=== PATIENT | female | born 1955 | race Caucasian/White ===

== ENCOUNTER 2019-09-22 08:27 | Outpatient (CLI) | payer BC, SELFPAY ==
--- NOTE | ~2019-09-22 | MM_ITS ---
EXAMINATION: MM screening [facility] BI w [facility] HISTORY: Screening mammogram TECHNIQUE: Craniocaudal and mediolateral oblique 3-D tomosynthesis images were obtained and synthetic 2-D images were generated. CAD analysis was submitted and interpreted. COMPARISON: 08/21/2018, 08/09/2017, 07/27/2016 BREAST PARENCHYMAL COMPOSITION: There are scattered areas of fibroglandular density. FINDINGS: Scattered benign-appearing calcifications are present. There is no evidence of suspicious m ass, calcification, or architectural distortion to suggest malignancy in either breast. There has bee n no suspicious interval change. IMPRESSION: 1. No mammographic evidence of malignancy. 2. Recommend routine screening mammography in one year. BI-RADS Category 2: Benign finding(s). Reviewed, dictated and finalized at location A. [employer]
== END 2019-09-22 08:28 | disposition home or self-care (01) ==
PROVIDERS: PCP Internal Medicine; Visit Provider Internal Medicine
DX: Z12.31 Encounter for screening mammogram for malignant neoplasm of breast (principal)
CPT/HCPCS: 77063; 77067

== ENCOUNTER 2020-01-19 09:32 | Outpatient (CLI) | payer BC, SELFPAY ==
--- NOTE | ~2020-01-19 | XR_ITS ---
EXAMINATION: XR foot LT min 3V DATE: 01/19/2020 09:55 INDICATION: Left mediastinal pain and swelling TECHNIQUE: Dorsoplantar, lateral, and 2 oblique views of the left foot were obtained. COMPARISON: 05/27/2015 FINDINGS: There is no fracture, dislocation, or subluxation. Mild osteoarthritis is noted in multiple interphalangeal joints and in the midfoot. Soft tissue calcifications are seen anterior to the dista l tibia. A plantar calcaneal enthesophyte is noted. IMPRESSION: 1. No acute osseous abnormality. Reviewed, dictated and finalized at location A.
== END 2020-01-19 09:33 | disposition home or self-care (01) ==
PROVIDERS: PCP Internal Medicine; Visit Provider Internal Medicine
DX: M79.89 Other specified soft tissue disorders (principal)
CPT/HCPCS: 73630

== ENCOUNTER 2020-03-08 07:52 | Outpatient (CLI) | payer BC, SELFPAY ==
--- NOTE | ~2020-03-08 | XR_ITS ---
XR foot LT min 3V DATE: 03/08/2020 08:15 INDICATION: Left foot generalized pain TECHNIQUE: 3 weightbearing views COMPARISON: 01/19/2020 left foot FINDINGS: Prominent plantar calcaneal enthesopathy. Pes planus. Osteoarthritic changes are noted at some of the tarsometatarsal, metatarsophalangeal and interphalang eal joints. There is mild flattening deformity of the second metatarsal head, likely due to old avascular necrosi s. IMPRESSION: Pes planus Plantar calcaneal enthesopathy Osteoarthritis Reviewed, dictated and finalized at location B.
== END 2020-03-08 07:53 | disposition home or self-care (01) ==
PROVIDERS: PCP Internal Medicine; Visit Provider Orthopaedic Surgery
DX: M79.672 Pain in left foot (principal)
CPT/HCPCS: 73630

== ENCOUNTER 2020-12-04 09:06 | Outpatient (CLI) | payer BC, SELFPAY | END 2020-12-04 09:07 | disposition home or self-care (01) | LOC: CHSCOVIDVC 09:07 | PROVIDERS: PCP Internal Medicine | DX: Z23 Encounter for immunization (principal) | CPT/HCPCS: 0011A; 91301 ==

== ENCOUNTER 2021-01-01 09:02 | Outpatient (CLI) | payer BC, SELFPAY | END 2021-01-01 09:03 | disposition home or self-care (01) | LOC: CHSCOVIDVC 09:02 | PROVIDERS: PCP Internal Medicine | DX: Z23 Encounter for immunization (principal) | CPT/HCPCS: 0012A; 91301 ==

== ENCOUNTER 2021-03-16 09:03 | Outpatient (CLI) | payer MEDICAID, SELFPAY ==
--- NOTE | ~2021-03-16 | CT_ITS ---
EXAMINATION: CT lung screening DATE: 03/16/2021 09:33 INDICATION: Personal history of nicotine dependence, current smoker with 46 pack year history TECHNIQUE: Computed tomography (CT) of the chest was performed without intravenous contrast. The dose -length product (DLP) was 66.94 mGy-cm. Automated exposure control and iterative reconstruction techn [employer] were employed. COMPARISON: 04/28/2019 FINDINGS: There is a stable 4 mm nodule in the superior segment of the left lower lobe. No new pulmon pretty nodule is identified. The lungs are free of acute opacities. There is no pleural effusion or pneu mothorax. No pathologically enlarged thoracic lymph nodes are identified. The heart size is normal. T here is mild emphysema. Calcified coronary artery atherosclerosis is noted. There is a 7 mm cyst of t he right hepatic lobe. Again noted is chronic anterior wedging of the T6, T7, and T8 vertebral bodies . IMPRESSION: 1. Lung-RADS category 2: Benign appearance or behavior. Continue annual screening with noncontrast lo w-dose chest CT in 12 months. Reviewed, dictated and finalized at location B. IMPRESSION: 1. Lung-RADS category 2: Benign appearance or behavior. Continue annual screeni ng with noncontrast low-dose chest CT in 12 months.
--- NOTE | ~2021-03-16 | MM_ITS ---
EXAMINATION: MM screening [facility] BI w [facility] HISTORY: Screening TECHNIQUE: Craniocaudal and mediolateral oblique 3-D tomosynthesis images were obtained and synthetic 2-D images were generated. CAD analysis was submitted and interpreted. COMPARISON: No prior mammogram is available for comparison at this institution. BREAST PARENCHYMAL COMPOSITION: There are scattered areas of fibroglandular density. FINDINGS: There is no evidence of suspicious mass, calcification, or architectural distortion to sugg est malignancy in either breast. There has been no suspicious interval change. IMPRESSION: 1. No mammographic evidence of malignancy. 2. Recommend routine screening mammography in one year. BI-RADS Category 1: Negative Reviewed, dictated and finalized at location A.
--- NOTE | ~2021-03-16 | DEXA_ITS ---
Bone Density Report Name: Marisel Kwan Age: 65 Sex: Female Ethnicity: White Date of : 1955 Indication: osteopenia; height loss; Referring Provider: Trace Acosta Study: Bone densitometry was performed. Exam Date: March 16, 2021 Accession number: [id number] Bone Density: Region BMD T-score Z-score Classification AP Spine(L1-L4) 0.979 -0.6 1.1 Normal Femoral Neck (Left) 0.590 -2.3 -0.8 Osteopenia Total Hip (Left) 0.814 -1.0 0.1 Normal Femoral Neck (Right) 0.594 -2.3 -0.8 Osteopenia Total Hip (Right) 0.813 -1.1 0.1 Osteopenia Femoral Neck Mean 0.592 -2.3 -0.8 Osteopenia Total Hip Mean 0.814 -1.1 0.1 Osteopenia World Health Organization criteria for BMD impression classify patients as: Normal (T-score at or above -1.0), Osteopenia (T-score between -1.0 and -2.5), or Osteoporosis (T-score at or below -2.5). 10-year Fracture Risk(1): Major Osteoporotic Fracture 12% Hip Fracture 3.0% Reported Risk Factors: [place] (), Neck BMD=0.590, BMI=32.5, smoking (1) FRAX(R) Version 3.08. Fracture probability calculated for an untreated patient. Fracture probability may be lower if the patient has received treatment. Previous Exams: Region Exam Age BMD T-score BMD Change BMD Change Date g/cm2 vs Baseline vs Previous AP Spine (L1-L4) 03/16/2021 65 0.979 -0.6 -0.119 (-10.8% -0.050 (-4.9%) 12/21/2017 62 1.029 -0.2 -0.068 (-6.2%) 0.028 (2.8%)* 10/23/2014 59 1.001 -0.4 -0.096 (-8.8%) -0.096 (-8.8%) 12/03/2009 54 1.098 0.5 Total Hip(Left) 03/16/2021 65 0.814 -1.0 -0.086 (-9.5%) 0.045 (5.8%)# 12/21/2017 62 0.770 -1.4 -0.130 (-14.5% -0.054 (-6.5%) 10/23/2014 59 0.823 -1.0 -0.076 (-8.5%) -0.076 (-8.5%) 12/03/2009 54 0.900 -0.3 Total Hip(Right) 03/16/2021 65 0.813 -1.1 -0.106 (-11.5% -0.021 (-2.5%) 10/23/2014 59 0.834 -0.9 -0.085 (-9.3%) -0.085 (-9.3%) 12/03/2009 54 0.919 -0.2 *Denotes significance at 95% confidence level, LSC for AP Spine = 0.022 g/cm2, LSC for Total Hip = 0.027 g/cm2 # Denotes dissimilar scan types or analysis methods Clinical Information Provided by Patient: Smokes Patient maximum height was 67 No regular weight bearing exercise Does not regularly consume dairy products Onset of menses at age 15 Number of children 2 Impression: The patient has low bone mass, based on the Left Femoral Neck T-score. The pat
--- NOTE | ~2021-03-16 | US_ITS ---
EXAMINATION: US carotid duplex BI DATE: 03/16/2021 10:29 INDICATION: Bilateral carotid bruits TECHNIQUE: Grayscale, color Doppler, and pulsed Doppler images of the cervical carotid arteries were obtained. The degree of vessel stenosis is placed in one of the following categories: normal, <50%, 5 0-69%, >=70% but less than near-occlusion, near-occlusion, or total occlusion. Note that percent sten osis relative to normal distal artery lumen diameter is indirectly measured from velocity measurement s as described by Luis Alfredo, et al. Radiology 2003; 229:340-346. COMPARISON: None. FINDINGS: RIGHT: The right common carotid artery (CCA) peak systolic velocity (PSV) is 84.6 cm/s. The right internal c arotid artery (ICA) PSV is 94.3 cm/s. The right ICA end-diastolic velocity (EDV) is 19.3 cm/s. The ri t ICA/CCA PSV ratio is 1.1. Grayscale and color Doppler images yield an estimate of less than 50% d iameter reduction from plaque in the ICA. The external carotid artery (ECA) PSV is 95.1 cm/s. There i s antegrade flow in the right vertebral artery. LEFT: The left CCA PSV is 79.5 cm/s. The left ICA PSV is 108.2 cm/s. The left ICA EDV is 21.5 cm/s. The lef t ICA/CCA PSV ratio is 1.4. Grayscale and color Doppler images yield an estimate of less than 50% myla meter reduction from plaque in the ICA. The ECA PSV is 102.3 cm/s. There is antegrade flow in the lef t vertebral artery. IMPRESSION: 1. Less than 50% stenosis in the right internal carotid artery. 2. Less than 50% stenosis in the left internal carotid artery. Reviewed, dictated and finalized at Location A. Reviewed, dictated and finalized at location A.
== END 2021-03-16 09:04 | disposition home or self-care (01) ==
LOC: CHSIMG 09:04
PROVIDERS: PCP Internal Medicine; Visit Provider Obstetrics & Gynecology
DX: Z12.31 Encounter for screening mammogram for malignant neoplasm of breast (principal); Z12.2 Encounter for screening for malignant neoplasm of respiratory organs; Z87.891 Personal history of nicotine dependence; I65.23 Occlusion and stenosis of bilateral carotid arteries; Z78.0 Asymptomatic menopausal state
CPT/HCPCS: 71271; 77063; 77067; 77080; 93880

== ENCOUNTER 2021-04-13 10:43 | Outpatient (CLI) | payer OTHER, SELFPAY ==
[2021-04-15 20:42] LABS: Vitamin D 25 Hydroxy 50 ng/mL (30-100)
== END 2021-04-13 10:44 | disposition home or self-care (01) ==
LOC: CHSLAB 10:45
PROVIDERS: PCP Internal Medicine; Visit Provider Obstetrics & Gynecology
DX: M85.80 Other specified disorders of bone density and structure, unspecified site (principal)
CPT/HCPCS: 36415; 82306

== ENCOUNTER 2021-04-15 08:06 | Outpatient (RCR) | payer OTHER, SELFPAY ==
--- NOTE | 2021-04-15 09:06 | PTOPEVAL ---
Thank you for referring Marisel Kwan to [facility].? The patient is scheduled to be seen for therapy? ____x/week for ___ weeks. Please review, sign, date and return this plan of care LYDIA. I agree with and certify that the following plan of care is medically necessary. Referring Physician Date Admitting Provider: Attending Provider: Trace Acosta MD Referring Provider: *PT Outpatient Evaluation Start: 04/15/21 08:08 Freq: Status: Active Protocol: Document 04/15/21 08:05 [facility] (Rec: 04/15/21 09:03 JAIME [email or web address]) Therapy Assessment Status Assessment Status Assessment Status Evaluation Evaluation Information Problem Diagnosis osteopenia/bone density Onset 04/13/21 Subjective Information patient reports she is seeking Query Text:As Reported By Patient/ skilled PT services for Family osteopenia and low rosales density. she reports her options were medications or begin a workout regimen. she reports she would like to learn resistive and strengthening exercises to help improve her activity and bone density. she reports she returns to the MD in 1 year. she reports about 1 month ago she did change her diet and has lost a bit of weight since then. Pain Assessment Timing of Pain Assessment Timing of Pain Assessment Assessment Self Report Self Report Pain Level 0 Pain Score Pain Score 0: Self Report Cervical and Lumbar ROM Lumbar ROM Reason Not Measured WFL/Left,WFL/Right Lower Extremity Range of Motion General Lower Extremity Range of Motion Reason Not Measured WFL/Left,WFL/Right Cervical and Lumbar Muscle Testing Lumbar Strength Upper Abdominal Strength 3+Fair+ Lower Abdominal Strength 3 Fair Lower Extremity Muscle Strength Testing Hip Strength Bilateral Hip Flexion Strength 4+ Good + Hip Extension Strength 4+ Good + Hip Abduction Strength 4+ Good + Knee Strength Bilateral Knee Flexion Strength 5 Normal Knee Extension Strength 5 Normal Ankle Strength Bilateral Ankle Dorsiflexion Strength 5 Normal Ankle Plantarflexion Strength 4+ Good + Posture Posture Standing Position Additional Posture Comments increased upper thoracic kyphosis rounded shoulders forward head
--- NOTE | 2021-04-26 10:54 | PTOPEVAL ---
Thank you for referring Marisel Kwan to [facility] [place].? The patient is scheduled to be seen for therapy? ____x/week for ___ weeks. Please review, sign, date and return this plan of care LYDIA. I agree with and certify that the following plan of care is medically necessary. Referring Physician Date Admitting Provider: Attending Provider: Trace Acosta MD Referring Provider: *PT Outpatient Evaluation Start: 04/15/21 08:08 Freq: Status: Active Protocol: Document 04/26/21 10:00 [facility] (Rec: 04/26/21 10:52 [facility] [email or web address]) Therapy Assessment Status Assessment Status Assessment Status Discharge Evaluation Information Problem Diagnosis osteopenia/bone density Onset 04/13/21 Subjective Information patient reports she feels Query Text:As Reported By Patient/ good this date. she reports Family she has had no pain. she reports she has been compliant with her HEP at home. Pain Assessment Timing of Pain Assessment Timing of Pain Assessment Assessment Self Report Self Report Pain Level 0 Pain Score Pain Score 0: Self Report Cervical and Lumbar Muscle Testing Lumbar Strength Upper Abdominal Strength 3+Fair+ Lower Abdominal Strength 3+Fair+ Lower Extremity Muscle Strength Testing Hip Strength Bilateral Hip Flexion Strength 5 Normal Hip Extension Strength 5 Normal Hip Abduction Strength 5 Normal Hip Adduction Strength 5 Normal Knee Strength Bilateral Knee Flexion Strength 5 Normal Knee Extension Strength 5 Normal Ankle Strength Bilateral Ankle Dorsiflexion Strength 5 Normal Ankle Plantarflexion Strength 5 Normal Palpation Assessment Palpation Palpation patient is independent and safe with squat mechanics with steady posture and foot position. patient displays safe and proper lunge mechanics without forward progression of the knees past the toes. General Exercise General Exercises Exercise Description -nustep 10 minutes level 5 Query Text:Record Sets, Reps, -squat x20 Resistance, and Position -heel and toe raises x20 -lunge x20 -step-ups x20 8in -hip abd x20 -hip ext x20 -hep education 5 minutes -re-evaluation 5 minutes PT Clinical Summary Clinical Summary Protocol: PTEVCODE PT Cl
== END 2021-04-26 11:47 | disposition home or self-care (01) ==
LOC: CHSPT 08:06
PROVIDERS: PCP Internal Medicine; Visit Provider Obstetrics & Gynecology
DX: M85.80 Other specified disorders of bone density and structure, unspecified site (principal)
CPT/HCPCS: 97110; 97161

== ENCOUNTER 2021-05-09 09:58 | Outpatient (CLI) | payer OTHER, SELFPAY ==
[2021-05-09 11:23] LABS: SARS-CoV-2 RNA PCR Negative (Negative)
== END 2021-05-09 09:59 | disposition home or self-care (01) ==
LOC: CHSLAB 10:00
PROVIDERS: PCP Internal Medicine; Visit Provider Internal Medicine
DX: J06.9 Acute upper respiratory infection, unspecified (principal); Z20.822 Contact with and (suspected) exposure to COVID-19
CPT/HCPCS: C9803; U0003; U0005

== ENCOUNTER 2021-05-10 10:05 | Outpatient (CLI) | payer OTHER, SELFPAY ==
--- NOTE | ~2021-05-10 | CT_ITS ---
EXAMINATION: CT brain wo con DATE: 05/10/2021 10:40 INDICATION: Dizziness and ataxia TECHNIQUE: Computed tomography (CT) of the head was performed without intravenous contrast. Sagittal and coronal reconstructions were performed. The mA was adjusted according to patient size. Iterative reconstruction technique was employed. The dose-length product was 605.33 mGy-cm. COMPARISON: None FINDINGS: No acute intracranial hemorrhage, acute infarction or abnormal extra axial fluid collection. There is mild scattered white matter hypoattenuation consistent with chronic small vessel ischemic disease. S ymmetric prominence of the sulci and subarachnoid spaces overlying the convexities consistent with mi ld age-appropriate diffuse cerebral volume loss. Ventricles are normal and symmetric. No mass/mass e ffect. The orbits, paranasal sinuses and mastoid air cells are normal. Intracranial calcified cerebra l atherosclerosis is noted. IMPRESSION: 1. Normal aging brain. No acute intracranial process. Reviewed, dictated and finalized at location B.
--- NOTE | ~2021-05-10 | XR_ITS ---
EXAMINATION: XR chest 2V DATE: 05/10/2021 10:40 INDICATION: Atrial fibrillation with lightheadedness and dizziness. TECHNIQUE: frontal and lateral views of the chest were obtained. COMPARISON: Chest radiograph dated chest CT dated FINDINGS: Nodular opacities consistent with callus formation surrounding a healing subacute fractures of the po sterolateral right sixth-ninth ribs. Lungs are clear with no focal airspace opacities, pulmonary black a, pleural effusion or pneumothorax. The cardiomediastinal silhouette is normal. Atherosclerotic aort a. Chronic T7 compression fracture with 20% anterior vertebral body height loss. IMPRESSION: 1. No acute cardiopulmonary disease. Reviewed, dictated and finalized at location B.
[2021-05-10 10:19] LABS: Basophils Absolute Auto 0.03 K/mm3 (0.00-0.10); Basophils Percent Auto 0.2 % (0.0-1.0); Eosinophils Absolute Auto 0.03 K/mm3 (0.02-0.50); Eosinophils Percent Auto 0.2 % (1.0-6.0); Hemoglobin 14.2 g/dL (12.0-15.0); Immature Granulocyte Absolute 0.13 K/mm3 (0.00-0.00); Immature Granulocyte Percent A 0.8 % (0.0-0.0); Lymphocytes Absolute Auto 1.34 K/mm3 (1.10-4.50); Lymphocytes Percent Auto 8.1 % (18.0-42.0); Mean Corpuscular HGB Conc 37.4 g/dL (32.0-36.0); Mean Corpuscular Volume 93.6 fL (78.0-102.0); Mean Platelet Volume 8.9 fl (9.2-11.8); Monocytes Absolute Auto 1.17 K/mm3 (0.10-0.90); Neutrophils Absolute Auto 13.9 K/mm3 (1.7-7.2); Neutrophils Percent Auto 83.7 % (50.0-70.0); Platelet Count Result 211 K/mm3 (150-420); Red Blood Count 4.06 M/mm3 (4.20-5.40); Red Cell Distribution Width 11.9 % (11.6-14.4); White Blood Count 16.6 K/mm3 (4.8-10.8)
[2021-05-10 10:35] LABS: Add Urine Microscopic? YES; Appearance Urine Sl Cloudy (Clear); Bilirubin Urine Negative (Negative); Blood Urine 3+ (Negative); Color Urine Light Yellow (Yellow); Glucose Urine UA Negative (Negative); Ketones Urine Negative (Negative); Leukocyte Esterase Ur 3+ LEU/UL (Negative); Nitrate Urine Negative (Negative); Protein Urine 1+ (Negative); Specific Grav Ur <= 1.005 (1.010-1.020); Urobilinogen Urine 0.2 mg/dL (0.2-1.0)
[2021-05-10 10:41] LABS: Bacteria Urine 2+ /hpf; Squamous Epithelial Cell Urine Few /hpf (Few); WBC Urine 21-30 /hpf (0-3)
[2021-05-10 10:56] LABS: Alanine Aminotransferase 46 U/L (14-59); Albumin Level 2.4 g/dL (3.4-5.0); Alkaline Phosphatase 86 U/L (46-116); Anion Gap 7 mmol/L (8-16); Aspartate Amino Transferase 46 U/L (15-37); Bilirubin,Total 0.7 mg/dL (0.00-1.00); Blood Urea Nitrogen 26 mg/dL (7-18); Calcium 8.4 mg/dL (8.5-10.1); Carbon Dioxide 36 mmol/L (21-32); Chloride 83 mmol/L (98-108); Creatine Kinase 54 U/L (26-192); Estimated Glomerular Filt Rate 41; Free T3 1.45 pg/mL (2.18-3.98); Free T4 Free Thyroxine 1.43 ng/dL (0.76-1.46); Glucose 145 mg/dL (70-99); NT Pro B Type Natriuretic Pept 867 pg/mL (0-125); Osmolality Calculated 269 mOsm/kg (285-295); Sodium 126 mmol/L (136-145); Thyroid Stimulating Hormone 0.49 uIU/mL (0.36-3.74); Total Protein 6.4 g/dL (6.4-8.2); Troponin I 14.3 ng/L (0.00-60.4)
[2021-05-10 11:00] LABS: Potassium 2.1 mmol/L (3.5-5.1)
--- NOTE | 2021-05-11 13:13 | HOLTER_ITS ---
This report was moved to the correct visit, [id number], on May 11, 2021. Original report was signed by Dr. Mohamud Kumar on May 11, 2021 at 1313. Holter/Event Monitor Holter/Event Monitor Date of procedure: 05/11/21 Holter/Event Procedure: 24 Hr Holter Monitor Indications: Dizziness Conclusion: 1. 24 holter monitor on 05/10/21. 2. Predominant rhythm is sinus rhythm. HR range 69-112 bpm; average HR 90 bpm. 3. There are 1,908 premature supraventricular complexes, 485 supraventricular couplets, 149 supraventricular bigeminy and 95 supraventricular trigeminy. There are 114 episodes of atrial tachycardia, fastest at 190 bpm and longest lasting 5 beats. 4. There are 2,028 premature ventricular complexes, 44 ventricular couplets, 77 ventricular bigeminy and 133 ventricular trigeminy. No ventricular tachycardia. 5. No sinoatrial or atrioventricular blocks. No significant pauses greater than 2 seconds. 6. No symptoms available for correlation. This dictation may have been done utilizing a voice recognition system. Attempts have been made to correct errors. However, there may be uncorrected grammatical, spelling, and recognition errors present. Report Initialized date/time: Mohamud Kumar DO 05/11/21 / 1313 Electronically signed by: Mohamud Kumar DO 05/11/21 1313 [facility]
== END 2021-05-10 10:06 | disposition home or self-care (01) ==
PROVIDERS: PCP Internal Medicine; Visit Provider Internal Medicine
DX: I48.91 Unspecified atrial fibrillation (principal); R27.0 Ataxia, unspecified; R82.90 Unspecified abnormal findings in urine
CPT/HCPCS: 36415; 70450; 71046; 80053; 81001; 82550; 82553; 83735; 83880; 84439; 84443; 84481; 84484; 85025; 87077; 87086; 87088; 87186; 93225; 93226

== ENCOUNTER 2021-05-10 12:57 | Inpatient (IN) | payer OTHER, SELFPAY ==
--- NOTE | ~2021-05-10 | US_ITS ---
EXAMINATION: US retroperitoneal comp EXAM DATE: 05/10/2021 15:43 INDICATION: Urinary tract infection. TECHNIQUE: Multiple grayscale and Doppler images of the kidneys were obtained (by a technologist who performed the scan) and subsequently reviewed. Comparison is made to prior examination from 3. FINDINGS: Right kidney: There is normal contour and echogenicity. It measures 12.4 x 6.3 x 6.7 centimeters. T here are no focal renal lesions identified. There is no hydronephrosis. Left kidney: There is normal contour and echogenicity. It measures 11.5 x 7.4 x 6.0 centimeters. The re is an exophytic lesion which appears partially cystic, but thick-walled and may have solid compone nt, possible renal cell cancer. This measures 1.9 x 1.5 x 2.0 cm There is no hydronephrosis. Bladder unremarkable. IMPRESSION: 1. Indeterminate left renal lesion; nonemergent CT or MRI without and with contrast is indicated. 2. No hydronephrosis. Reviewed, dictated and finalized at location A. IMPRESSION: 1. Indeterminate left renal lesion; nonemergent CT or MRI without and with con trast is indicated. 2. No hydronephrosis.
--- NOTE | ~2021-05-10 | CT_ITS ---
EXAMINATION: CT abdomen pelvis wo/w con DATE: 05/11/2021 11:37 INDICATION: Left kidney mass. TECHNIQUE: Computed tomography (CT) of the abdomen and pelvis was performed without and with 100 mL O mnipaque 350 intravenous contrast. Automated exposure control and iterative reconstruction technique were employed. The dose-length product was 581.06 mGy-cm. COMPARISON: CT abdomen and pelvis 03/09/2016 FINDINGS: The visualized portions of the lung bases demonstrate mild atelectasis. The heart size is n ormal. No pericardial effusion. There are coronary artery calcifications. There is a 9 mm cyst in the liver. The gallbladder is contracted. The spleen, pancreas, and adrenal glands are normal. There are cysts in the kidneys measuring up to 2.5 cm on the left. There are bilateral inguinal hernias contai marciano fat. There is diverticulosis of the colon without evidence of diverticulitis. There are no dilat ed loops of bowel. The appendix is not visualized. There are no pathologically enlarged lymph nodes. There is no free intraperitoneal fluid. There is a lipoma in right lateral chest wall. There is moder ate lumbar spondylosis. IMPRESSION: 1. Benign cysts in the kidneys. 2. Bilateral inguinal hernias containing fat. Reviewed, dictated and finalized at location A.
--- NOTE | 2021-05-10 08:00 | ECHO_ITS ---
Patient Info Name: Marisel Kwan Age: 65 years : 1955 Gender: Female Ht: 66 in Wt: 138 lbs BSA: 1.71 m2 Exam Date: 05/12/2021 7:37 AM Exam Location: [facility] Patient Status: Inpatient Admit Date: 05/10/2021 Staff Ordering Physician: Chaitanya Hernandez MD Asparagus Cutter: David Norton RDCS, RT Attending Provider: Chaitanya Hernandez MD Referring Physician: David RODRIGUEZ; Exam Type: CA echo doppler color flow Study Info Indications R42 - Dizziness and giddiness Complete two-dimensional, color flow and Doppler transthoracic echocardiogram is performed. Strain analysis performed. Summary 1. Complete two-dimensional, color flow and Doppler transthoracic echocardiogram is performed. 2. Left ventricular chamber dimension is normal. 3. Left ventricular systolic function is normal, estimated at 60-65%. 4. The left ventricular diastolic function is abnormal. 5. E/e' 12 is mildly elevated. 6. Left atrial chamber dimension is mildly enlarged. 7. Right atrial chamber dimension is mildly enlarged. 8. There is trace aortic valve regurgitation. 9. There is mild mitral valve regurgitation. 10. There is mild tricuspid valve regurgitation. 11. No pulmonary hypertension, estimated pulmonary arterial systolic pressure is 31 mmHg. Left Ventricle E/e' 12 is mildly elevated. Left ventricular chamber dimension is normal. Left ventricular systolic function is normal, estimated at 60-65%. The left ventricular diastolic function is abnormal. Right Ventricle Right ventricular systolic function is normal and normal TAPSE 2.3 cm. Right ventricular chamber dimension is normal. Left Atria Left atrial chamber dimension is mildly enlarged. Right Atria Right atrial chamber dimension is mildly enlarged. Aortic Valve The aortic valve is trileaflet. There is no aortic valve stenosis. There is trace aortic valve regurgitation. Pulmonic Valve There is no pulmonic regurgitation. Mitral Valve There is no mitral valve stenosis. There is mild mitral valve regurgitation. Tricuspid Valve There is mild tricuspid valve regurgitation. No pulmonary hypertension, estimated pulmonary arterial systolic pressure is 31 mmHg. Pericardium/Pleural There is no pericardial effusion. Inferior Vena Cava Normal inferior vena cava with >50% collapse upon inspiration consistent with normal right atrial pressure, 5 mmHg. Aorta The aortic root size at the sinus of Valsalva is normal. Left Ventricular Outflow Tract Name Value Normal LVOT 2D LVOT Diameter 2.0 cm LVOT Doppler LVOT Peak Velocity 89 cm/s LVOT Peak Gradient 3 mmHg LVOT Mean Gradient 2 mmHg LVOT VTI 23 cm LVOT VTI/AV VTI Ratio 0.7 LVOT Stroke Volume 73 ml Mitral Valve Name Value Normal MV 2D/MM
[2021-05-10 14:00] VITALS: BP 122/64; PULSE 81; RESP 16; TEMP 36.4; O2SAT 98
--- NOTE | 2021-05-10 14:30 | ED.DIZZY ---
HPI - Dizziness General Chief Complaint: Dizziness Stated Complaint: sent over by doctor Time Seen by Provider: 05/10/21 14:31 Source: patient Mode of arrival: ambulatory Limitations: no limitations History of Present Illness HPI Narrative: 65-year-old woman with a history of hypertension and dyslipidemia comes to the emergency department that the recommendation per . She saw her her doctor today with a complaint of dizziness decreased appetite not feeling well. His workup revealed that she had a UTI, hypokalemia, hyponatremia, and an abnormal EKG showing sinus rhythm with frequent PVCs and PACs. She denies chest pain, fever, chills, vomiting, diarrhea, and abdominal pain. She denies any recent sick exposures. She has had the COVID vaccine. MD elicited complaint: dizziness Onset (ago): day(s) Timing: gradual onset Severity: moderate History of similar symptoms: No Exacerbating factors: nothing Relieving factors: nothing Associated symptoms: malaise and weakness Related Data Home Medications Medication Instructions Recorded Confirmed atorvastatin 40 mg tablet 40 mg PO DAILY 03/08/20 05/10/21 cyanocobalamin (vitamin B-12) 2,000 mcg PO DAILY 05/10/21 05/10/21 ergocalciferol (vitamin D2) 400 unit PO DAILY 05/10/21 05/10/21 losartan-hydrochlorothiazide 1 tablet PO DAILY 05/10/21 05/10/21 terbinafine HCl 250 mg PO DAILY 05/10/21 05/10/21 Allergies Allergy/AdvReac Type Severity Reaction Status Date / Time No Known Allergies Allergy Verified 04/13/21 09:52 Review of Systems Review of Systems: All systems reviewed & are unremarkable except as noted in HPI and below Constitutional: Constitutional: Denies chills, Reports fatigue, Denies fever(s) and Reports weakness Eyes: Eyes: Denies change in vision and Denies photophobia ENT: Denies dysphagia, Denies nasal congestion and Denies sore throat Cardiovascular: Cardiovascular: Denies chest pain and Denies radiating jaw, neck or arm pain Respiratory: Respiratory: Denies cough and Denies dyspnea Gastrointestinal: Gastrointestinal: Denies abdominal pain, Denies diarrhea, Denies nausea and Denies vomiting Genitourinary: Genitourinary: Denies hematuria, Denies nocturia and Denies dysuria Musculoskeletal: Musculoskeletal: Denies back pain, Denies arthralgias and Denies joint swelling Integumentary/Breasts: Skin/Breast: Denies pruritus, Denies erythema and Denies rash Neurologic: Denies vertigo, Reports dizziness and Denies syncope Endocrine: Endocrine: Denies excessive sweating and Denies polyuria Hematologic/Lymphatic: Hematologic/Lymphatic: Denies easy bleeding and Denies easy bruising Allergic/Immunologic: Allergic/Immunologic: Denies lip swelling and Denies throat swelling PMFSH Past Medical History Medical History Achilles tendinitis of left lower extremity Arthritis of foot, left, degenerative Cystocele Posterior calcaneal exostosis Vaginal delivery x2 Surgical History Surgical History H/O of anterior colporrhaphy 2009 History of hysterectomy 03/27/16 Family History Family History Father Acute myocardial infarction, Onset Age: 82 Patient's father is Mother Patient's mother is Social History Social History Smoking packs per day: 1 Smoking cigarettes per day: 20.0 Years smoked: 43 Smoking pack-years: 43.00 Smoking status: Current every day smoker Tobacco type: cigarettes Second hand tobacco smoke exposure: No Alcohol intake: current Substance use: unknown Gender identity (if verbalized by the patient): Female Spiritual care concerns: No Agree to blood products: Yes Exam Const: General: healthy appearing, no acute distress and alert Orientation/consci
[2021-05-10 14:45] VITALS: BP 106/55; PULSE 83; RESP 16; O2SAT 97
[2021-05-10] MEDS: POTASSIUM CHLORIDE 20 MEQ TABLET 40 MEQ PO (15:00)
[2021-05-10] MEDS: SODIUM CHLORIDE 0.9% IV 1,000 ML 100 ML IV CONT (15:00)
[2021-05-10 15:30] VITALS: BP 132/54; PULSE 94; RESP 14; O2SAT 95
[2021-05-10] MEDS: KCL 20 MEQ/SW 100 ML 100 ML 50 MEQ IVPB (15:50)
[2021-05-10 16:30] VITALS: BP 114/60; PULSE 72; RESP 18; O2SAT 95
[2021-05-10 17:30] VITALS: PULSE 74; BMI 22.6
--- NOTE | 2021-05-10 17:30 | ADMGEN ---
This patient, Marisel Kwan, was admitted to 2nd Floor Room 203-2 related to hypokalemia,hyponatremia, and UTI . Patient/family oriented to hospital policies and general routines including ID bracelet, bed and alarms, visiting hours, pain management, procedures, bathroom and other care routines, personal items, smoking policy, room service/diet, and visiting hours. Information on how to activate the Rapid Response Team has been discussed. Patient/Family are encouraged to report perceived risks to care and to ask questions if they do not understand what they are told or what they should do.
[2021-05-10 17:38] LABS: SARS-CoV-2 Ag Negative (Negative)
[2021-05-10 20:00] VITALS: BP 103/53; PULSE 62; PULSE 63; RESP 18; TEMP 36.8; O2SAT 93
[2021-05-10 21:26] LABS: Anion Gap 6 mmol/L (8-16); Blood Urea Nitrogen 27 mg/dL (7-18); Calcium 8.2 mg/dL (8.5-10.1); Carbon Dioxide 35 mmol/L (21-32); Chloride 87 mmol/L (98-108); Estimated CRCL calculation 40 ml/min; Estimated Glomerular Filt Rate 46; Glucose 163 mg/dL (70-99); Magnesium 2.2 mg/dL (1.8-2.4); Osmolality Calculated 275 mOsm/kg (285-295); Sodium 128 mmol/L (136-145)
[2021-05-10 21:28] LABS: Potassium 2.1 mmol/L (3.5-5.1)
--- NOTE | 2021-05-10 22:07 | PC.NURSE ---
notified of Potassium level is currently 2.1.
[2021-05-11] VITALS (10 sets, daily range): BP systolic 108–120; BP diastolic 56–62; PULSE 60–86; RESP 14–20; TEMP 36.3–37.2; O2SAT 94–100
[2021-05-11] MEDS: KCL 20 MEQ/SW 100 ML 100 ML 50 MEQ IVPB ×5 (00:50→15:57)
[2021-05-11 05:26] LABS: Hematocrit 33.8 % (35.0-49.0); Hemoglobin 12.2 g/dL (12.0-15.0); Mean Corpuscular HGB Conc 36.1 g/dL (32.0-36.0); Mean Corpuscular Hemoglobin 34.2 pg (27.0-31.0); Mean Corpuscular Volume 94.7 fL (78.0-102.0); Platelet Count Result 204 K/mm3 (150-420); Red Blood Count 3.57 M/mm3 (4.20-5.40); Red Cell Distribution Width 12.1 % (11.6-14.4)
[2021-05-11 05:47] LABS: Total Cells Counted 100
[2021-05-11] MEDS: SODIUM CHLORIDE 0.9% IV 1,000 ML 100 ML IV CONT (05:47)
[2021-05-11 05:48] LABS: Band Neutrophils Percent 1 % (0-6); Basophils Percent Manual 0 % (0-1); Eosinophils Percent Manual 0 % (1-6); Lymphocytes Percent Manual 15 % (18-44); Monocytes Absolute Manual 1.08 K/mm3 (0.1-0.90); Monocytes Percent Manual 9 % (3-9); Neutrophils Absolute Manual 9.12 K/mm3 (1.7-7.2); Neutrophils Percent Manual 75 % (46-73); Platelet Estimate Adequate (Adequate)
[2021-05-11 05:49] LABS: Alanine Aminotransferase 62 U/L (14-59); Albumin Level 2.3 g/dL (3.4-5.0); Alkaline Phosphatase 78 U/L (46-116); Anion Gap 11 mmol/L (8-16); Aspartate Amino Transferase 73 U/L (15-37); Bilirubin,Total 0.4 mg/dL (0.00-1.00); Blood Urea Nitrogen 25 mg/dL (7-18); Calcium 8.4 mg/dL (8.5-10.1); Carbon Dioxide 31 mmol/L (21-32); Chloride 90 mmol/L (98-108); Estimated CRCL calculation 47 ml/min; Estimated Glomerular Filt Rate 56; Glucose 113 mg/dL (70-99); NT Pro B Type Natriuretic Pept 519 pg/mL (0-125); Osmolality Calculated 279 mOsm/kg (285-295); Potassium 2.7 mmol/L (3.5-5.1); Sodium 132 mmol/L (136-145)
--- NOTE | 2021-05-11 08:54 | PM.IMHP ---
H&P: HPI History of Present Illness Date/Time: 05/11/21 08:54 this is a 65-year-old female who presented to our emergency department after visiting her primary care physician with dizziness. Work-up indicated a UTI, hypokalemia, hyponatremia and abnormal EKG. patient has a past medical history of osteopenia, hypertension hyperlipidemia. According to the patient approximately Sunday she started to feel bad . Patient notes that her mouth became extremely dry, she has not experienced anything like this in the past. Patient notes that she drinks plenty of water throughout the day, she denies any nausea vomiting diarrhea previous to feeling bad. She noted on Sunday and she developed lightheadedness dizziness. Patient notes that while she was with her family she took a small bag to eat and stood up notes that she felt like she was having a out of body experience she also developed some lightheadedness and dizziness at that time. She describes a time when she was standing in front of a tree staring not realizing she was looking at a tree. WBC 16.6, hemoglobin 14.2, hematocrit 38, platelets 211, sodium 126, potassium 2.1, BUN 26, creatinine 1.32, magnesium 2.0, AST 26, ALT 46, BNP 867, UA positive for blood, leukocytes, WBCs, bacteria, Covid negative, EKG at the clinic indicate sinus rhythm with frequent PVCs and PACs. Patient notes that her condition has improved since her admission .the patient denies SOB, CP, palpitation, extremity numbness, lightheadedness, dizziness, constipation, diarrhea, chills, or fever. Chief Complaint: Dizziness, not feeling well Review of Systems Review of Systems: A 14 organ system Review of Systems was performed and pertinent positives included in the HPI, otherwise remaining ROS is negative. [facility] Past Medical History Medical History Achilles tendinitis of left lower extremity Arthritis of foot, left, degenerative Cystocele Posterior calcaneal exostosis Vaginal delivery x2 Surgical History Surgical History H/O of anterior colporrhaphy 2010 History of hysterectomy 03/27/16 Family History Family History Father Acute myocardial infarction, Onset Age: 82 Patient's father is Mother Patient's mother is Social History Social History Smoking packs per day: 1 Smoking cigarettes per day: 20.0 Years smoked: 40 Smoking pack-years: 40.00 Smoking status: Current every day smoker Tobacco type: cigarettes Second hand tobacco smoke exposure: No Alcohol intake: former Substance use: never Gender identity (if verbalized by the patient): Female Spiritual care concerns: No Agree to blood products: Yes Meds Home Medications and Allergies Home Medications Medication Instructions Recorded Confirmed Type atorvastatin 40 mg tablet 40 mg PO DAILY 03/08/20 05/10/21 History cyanocobalamin (vitamin B-12) 2,000 mcg PO DAILY 05/10/21 05/10/21 History ergocalciferol (vitamin D2) 400 unit PO DAILY 05/10/21 05/10/21 History losartan-hydrochlorothiazide 1 tablet PO DAILY 05/10/21 05/10/21 History terbinafine HCl 250 mg PO DAILY 05/10/21 05/10/21 History Allergies Allergy/AdvReac Type Severity Reaction Status Date / Time No Known Allergies Allergy Verified 04/13/21 09:52 Vital Signs Vital Signs - 24 hr 05/10/21 14:00 05/10/21 14:45 05/10/21 15:30 Temperature 97.5 F L Pulse Rate 81 83 94 Respiratory Rate 16 16 14 Blood Pressure 122/64 106/55 L 132/54 L Pulse Oximetry 98 97 95 05/10/21 16:30 05/10/21 17:30 05/10/21 20:00 Temperature 98.3 F Pulse Rate 72 74 62 Respiratory Rate 18 18 Blood Pressure 114/60 103/53 L Pulse Oximetry 95 93 05/11/21 00:00 05/11/21 04:00 05/11/21 08:00 Temperature 98.8
[2021-05-11] MEDS: CHOLECALCIFEROL 400 UNITS TABLET (VIT D) PO (09:02)
[2021-05-11] MEDS: LOSARTAN POTASSIUM 50 MG TABLET 100 MG PO (09:03)
[2021-05-11] MEDS: ATORVASTATIN 40 MG TABLET PO (09:03)
[2021-05-11 10:02] LABS: Thyroid Stimulating Hormone Reflex 0.81 u/IU/mL (0.36-3.74)
[2021-05-11] MEDS: TERBINAFINE HCL 250 MG TABLET PO (11:43)
--- NOTE | 2021-05-11 13:06 | WPDHOLTEREM ---
Holter/Event Monitor Holter/Event Monitor Date of procedure: 05/11/21 Holter/Event Procedure: 24 Hr Holter Monitor Indications: Dizziness Conclusion: 1. 24 holter monitor on 05/10/21. 2. Predominant rhythm is sinus rhythm. HR range 69-112 bpm; average HR 90 bpm. 3. There are 1,908 premature supraventricular complexes, 485 supraventricular couplets, 149 supraventricular bigeminy and 95 supraventricular trigeminy. There are 114 episodes of atrial tachycardia, fastest at 190 bpm and longest lasting 5 beats. 4. There are 2,028 premature ventricular complexes, 44 ventricular couplets, 77 ventricular bigeminy and 133 ventricular trigeminy. No ventricular tachycardia. 5. No sinoatrial or atrioventricular blocks. No significant pauses greater than 2 seconds. 6. No symptoms available for correlation.
[2021-05-11 14:39] LABS: Potassium 2.9 mmol/L (3.5-5.1)
[2021-05-11] MEDS: SODIUM CHLORIDE 0.9% IV 500 ML IV CONT (16:07)
--- NOTE | 2021-05-12 00:22 | PC.NURSE ---
Given 150ml water per request. Denies pain or discomfort.
[2021-05-12 04:00] VITALS: BP 142/63; PULSE 56; RESP 18; TEMP 36.8; O2SAT 95
[2021-05-12 05:36] LABS: Hemoglobin 13.3 g/dL (12.0-15.0); Mean Corpuscular Hemoglobin 34.4 pg (27.0-31.0); Mean Corpuscular Volume 98.2 fL (78.0-102.0); Mean Platelet Volume 8.7 fl (9.2-11.8); Platelet Count Result 295 K/mm3 (150-420); Red Blood Count 3.87 M/mm3 (4.20-5.40); Red Cell Distribution Width 12.5 % (11.6-14.4)
[2021-05-12 05:56] LABS: Alanine Aminotransferase 93 U/L (14-59); Albumin Level 2.4 g/dL (3.4-5.0); Alkaline Phosphatase 86 U/L (46-116); Anion Gap 8 mmol/L (8-16); Aspartate Amino Transferase 94 U/L (15-37); Bilirubin,Total 0.4 mg/dL (0.00-1.00); Blood Urea Nitrogen 18 mg/dL (7-18); Calcium 8.8 mg/dL (8.5-10.1); Carbon Dioxide 35 mmol/L (21-32); Chloride 100 mmol/L (98-108); Estimated CRCL calculation 49 ml/min; Estimated Glomerular Filt Rate 59; Glucose 113 mg/dL (70-99); Magnesium 2.1 mg/dL (1.8-2.4); Osmolality Calculated 298 mOsm/kg (285-295); Potassium 2.8 mmol/L (3.5-5.1); Sodium 143 mmol/L (136-145); Total Protein 6.6 g/dL (6.4-8.2)
--- NOTE | 2021-05-12 07:24 | PC.NURSE ---
Pt rounding completed. Patient was watching TV in bed and in a pleasant mood. Pt stated she did not sleep very well through the night, but is cooperative. Call light is within reach.
[2021-05-12 08:00] VITALS: BP 133/87; PULSE 70; RESP 19; TEMP 36.5; O2SAT 97
[2021-05-12] MEDS: KCL 20 MEQ/SW 100 ML 100 ML 50 MEQ IVPB ×2 (08:09→10:07)
[2021-05-12] MEDS: SODIUM CHLORIDE 0.9% IV 500 ML IV CONT (08:20)
[2021-05-12] MEDS: LOSARTAN POTASSIUM 50 MG TABLET 100 MG PO (08:22)
[2021-05-12] MEDS: CYANOCOBALAMIN 1,000 MCG TABLET 2000 MCG PO (08:22)
[2021-05-12] MEDS: CHOLECALCIFEROL 400 UNITS TABLET (VIT D) PO (08:22)
[2021-05-12] MEDS: ATORVASTATIN 40 MG TABLET PO (08:23)
[2021-05-12] MEDS: TERBINAFINE HCL 250 MG TABLET PO (08:23)
[2021-05-12] MEDS: POTASSIUM CHLORIDE 20 MEQ PACKET (FOR LIQUID) 40 MEQ PO (08:23)
--- NOTE | 2021-05-12 08:40 | PC.NURSE ---
Patient rounding completed. Patient is sitting up in bed and eating breakfast. Patient was cooperative with taking her medications. Call light is within reach.
--- NOTE | 2021-05-12 09:24 | PC.NURSE ---
Patient rounding completed. Patient ambulated to the restroom and back to bed independently. Patient was offered bath wipes and completed oral care independently. Patient is very communicative and is in a pleasant mood. Call light is within reach.
--- NOTE | 2021-05-12 10:12 | PC.NURSE ---
Patient rounding completed. Patient ambulated to the restroom independently. IV potassium piggy back was initiated while patient was brought to bed in a sitting position. Patient is in pleasant mood and call light is within reach.
[2021-05-12 11:29] LABS: Hemoglobin A1C 5.8 % (<5.7)
[2021-05-12 12:00] VITALS: BP 116/55; PULSE 66; PULSE 78; RESP 17; TEMP 36.4; O2SAT 97
--- NOTE | 2021-05-12 12:12 | PC.NURSE ---
Patient ambulated to the sink to wash hands independently. Patient is in a pleasant mood.
[2021-05-12 12:53] LABS: Potassium 3.6 mmol/L (3.5-5.1)
--- NOTE | 2021-05-12 12:55 | P.DS_ITS ---
DS: Admitting Diagnosis Discharge Date 05/12/2021 Admitting Diagnosis UTI, electrolyte imbalance, water toxicity DS: Discharge Diagnosis Discharge Diagnosis (1) Acute hyponatremia: Code(s): E87.1 - Hypo-osmolality and hyponatremia Status: Acute Assessment and Plan: * Resolved * Possibly secondary to water toxicity versus diabetes insipidus versus psycho polydipsia * [id number]>128>132>143 (2) Acute hypokalemia: Code(s): E87.6 - Hypokalemia Status: Acute Assessment and Plan: * Possibly secondary to water toxicity * Patient reports drinking 2500 ml this morning before 10:00 * Potassium 2.1>2.7>2.9>2.8>3.6 * Patient will discharge home with potassium supplement * Educated on fluid restriction * Repeat potassium in 3 days with results going to primary care physician (3) Dizziness: Code(s): R42 - Dizziness and giddiness Status: Acute Assessment and Plan: * Resolved (4) Left kidney mass: Code(s): N28.89 - Other specified disorders of kidney and ureter Status: Acute Assessment and Plan: * Ultrasound indicates There is normal contour and echogenicity. It measures 11.5 x 7.4 x 6.0 centimeters. There is an exophytic lesion which appears partially cystic, but thick-walled and may have solid component, possible renal cell cancer. * CT indicates benign cyst in indicating (5) UTI (urinary tract infection): Qualifiers: Hematuria presence: without hematuria Urinary tract infection type: acute cystitis Qualified Code(s): N30.00 - Acute cystitis without hematuria Code(s): N39.0 - Urinary tract infection, site not specified Status: Acute Assessment and Plan: * UA indicates leukocytes, WBCs, bacteria and protein * UA with the growth of E. coli * Patient will discharge home with Cipro * Continue Levaquin as inpatient * WBC slightly elevated at 12.0> within normal limits (6) Arthritis of foot, left, degenerative: Qualifiers: Osteoarthritis type: primary Qualified Code(s): M19.072 - Primary osteoarthritis, left ankle and foot Code(s): M19.072 - Primary osteoarthritis, left ankle and foot Status: Acute Assessment and Plan: * Continue pain medication (7) HLD (hyperlipidemia): Code(s): E78.5 - Hyperlipidemia, unspecified Status: Acute Assessment and Plan: * Continue atorvastatin (8) HTN (hypertension): Code(s): I10 - Essential (primary) hypertension Status: Acute Assessment and Plan: * Stable * Continue losartan with HCTZ * Vital signs as ordered * Will adjust medication as needed (9) Osteopenia: Code(s): M85.80 - Other specified disorders of bone density and structure, unspecified site Status: Acute Assessment and Plan: * Continue vitamin D DS: Summary Hospital Course Reason for hospitalization: Dizziness Hospital Course: this is a 65-year-old female who presented to our emergency department after visiting her primary care physician with dizziness. Work-up indicated a UTI, hypokalemia, hyponatremia and abnormal EKG. patient has a past medical history of osteopenia, hypertension hyperlipidemia. According to the patient approximately Sunday she started to feel bad . Patient notes that her mouth became extremely dry, she has not experienced anything like this in the past. Patient notes that she drinks plenty of water throughout the day, she denies any nausea vomiting diarrhea previous to feeling bad. She noted on Sunday and she developed li
--- NOTE | 2021-05-12 12:55 | PM.DS ---
DS: Admitting Diagnosis Discharge Date 05/12/2021 Admitting Diagnosis UTI, electrolyte imbalance, water toxicity DS: Discharge Diagnosis Discharge Diagnosis (1) Acute hyponatremia: Code(s): E87.1 - Hypo-osmolality and hyponatremia Status: Acute Assessment and Plan: Resolved Possibly secondary to water toxicity versus diabetes insipidus versus psycho polydipsia [id number]>128>132>143 (2) Acute hypokalemia: Code(s): E87.6 - Hypokalemia Status: Acute Assessment and Plan: Possibly secondary to water toxicity Patient reports drinking 2500 ml this morning before 10:00 Potassium 2.1>2.7>2.9>2.8>3.6 Patient will discharge home with potassium supplement Educated on fluid restriction Repeat potassium in 3 days with results going to primary care physician (3) Dizziness: Code(s): R42 - Dizziness and giddiness Status: Acute Assessment and Plan: Resolved (4) Left kidney mass: Code(s): N28.89 - Other specified disorders of kidney and ureter Status: Acute Assessment and Plan: Ultrasound indicates There is normal contour and echogenicity. It measures 11.5 x 7.4 x 6.0 centimeters. There is an exophytic lesion which appears partially cystic, but thick-walled and may have solid component, possible renal cell cancer. CT indicates benign cyst in indicating (5) UTI (urinary tract infection): Qualifiers: Hematuria presence: without hematuria Urinary tract infection type: acute cystitis Qualified Code(s): N30.00 - Acute cystitis without hematuria Code(s): N39.0 - Urinary tract infection, site not specified Status: Acute Assessment and Plan: UA indicates leukocytes, WBCs, bacteria and protein UA with the growth of E. coli Patient will discharge home with Cipro Continue Levaquin as inpatient WBC slightly elevated at 12.0> within normal limits (6) Arthritis of foot, left, degenerative: Qualifiers: Osteoarthritis type: primary Qualified Code(s): M19.072 - Primary osteoarthritis, left ankle and foot Code(s): M19.072 - Primary osteoarthritis, left ankle and foot Status: Acute Assessment and Plan: Continue pain medication (7) HLD (hyperlipidemia): Code(s): E78.5 - Hyperlipidemia, unspecified Status: Acute Assessment and Plan: Continue atorvastatin (8) HTN (hypertension): Code(s): I10 - Essential (primary) hypertension Status: Acute Assessment and Plan: Stable Continue losartan with HCTZ Vital signs as ordered Will adjust medication as needed (9) Osteopenia: Code(s): M85.80 - Other specified disorders of bone density and structure, unspecified site Status: Acute Assessment and Plan: Continue vitamin D DS: Summary Hospital Course Reason for hospitalization: Dizziness Hospital Course: this is a 65-year-old female who presented to our emergency department after visiting her primary care physician with dizziness. Work-up indicated a UTI, hypokalemia, hyponatremia and abnormal EKG. patient has a past medical history of osteopenia, hypertension hyperlipidemia. According to the patient approximately Sunday she started to feel bad . Patient notes that her mouth became extremely dry, she has not experienced anything like this in the past. Patient notes that she drinks plenty of water throughout the day, she denies any nausea vomiting diarrhea previous to feeling bad. She noted on Sunday and she developed lightheadedness dizziness. Patient notes that while she was with her family she took a small bag to eat and stood up notes that she felt like she was having a out of body experience she also developed some lightheadedness and dizziness at that time. She describes a time when she was standing in front of a tree staring not realizing she was looking at a tree. Patient is electrolyte is currently balanced. Notify patient's prim
--- NOTE | 2021-05-12 13:01 | PC.NURSE ---
Patient vital signs completed and patient was sitting in bed with a call light within reach. Discussion of her spouse coming to get her for her discharge took place.
--- NOTE | 2021-05-12 13:44 | PC.NURSE ---
Patient discharge teaching was completed. A handout of new medications and infection/fall prevention supplied and was discussed with patient. Patient verbalized understanding of new regimen and fluid restriction. Follow up with patient's primary was discussed and patient verbalized understanding of importance to follow plan of care and seeing primary for follow up.
--- NOTE | 2021-05-12 14:12 | PC.NURSE ---
Patient rounding completed. Patient is sitting in bed watching tv. Patient is in pleasant mood and is awaiting spouse to pick her up. Call light is within reach and services of care offered while patient is waiting.
--- NOTE | 2021-05-12 16:02 | PC.NURSE ---
patient up in room and millan. up adlib. waiting for ride home. denies any problems. questions on fluid restriction , explained and claims she understands.
--- NOTE | 2021-05-12 17:45 | PC.NURSE ---
[id number] here to pick her up. refused wc. walked with nurse. voices no c/o. claims she understands dc instructions and will call back if she has any questions.
--- NOTE | 2021-05-18 10:50 | PC.NURSE ---
Pt states she received and understood her discharge instructions. Pt has no other comments.
== END 2021-05-12 16:35 | disposition home or self-care (01) | DRG 426 ==
LOC: CHSED 16:03 → CHS2ND 17:17
PROVIDERS: Nurse Practitioner; Admitting Provider Emergency Medicine; Emergency Provider Emergency Medicine; PCP Internal Medicine; Visit Provider Emergency Medicine
DX: E87.1 Hypo-osmolality and hyponatremia (principal); N39.0 Urinary tract infection, site not specified; I10 Essential (primary) hypertension; E87.6 Hypokalemia; E78.5 Hyperlipidemia, unspecified; R93.422 Abnormal radiologic findings on diagnostic imaging of left kidney; M19.072 Primary osteoarthritis, left ankle and foot; M85.80 Other specified disorders of bone density and structure, unspecified site; N28.1 Cyst of kidney, acquired; R94.31 Abnormal electrocardiogram [ECG] [EKG]; Z90.710 Acquired absence of both cervix and uterus; F17.210 Nicotine dependence, cigarettes, uncomplicated; E87.5 Hyperkalemia
CPT/HCPCS: 36415; 74178; 76770; 80048; 80053; 83036; 83735; 83880; 84132; 84443; 85025; 85027; 87426; 93306; 96365; 96375; 99285; A9270; C9803; J0696; J3480; J7030; J7040; Q9967

== ENCOUNTER 2022-03-20 08:05 | Outpatient (CLI) | payer MEDICARE, OTHER, SELFPAY ==
--- NOTE | ~2022-03-20 | MMUS_ITS ---
EXAMINATION: MM diagnostic isa BI w nuvia, US breast RT limited HISTORY: Lower outer right breast lump TECHNIQUE: Bilateral full field ML, MLO and CC and additional spot right MLO, MLO and CC 3-D tomosynt hesis images were performed and synthetic 2-D images were generated. CAD analysis was submitted and i nterpreted. High resolution targeted right breast ultrasound was performed. COMPARISON: 03/16/2021, 09/22/2019, 08/21/2018 bilateral screening mammogram examinations BREAST PARENCHYMAL COMPOSITION: There are scattered areas of fibroglandular density. FINDINGS: MAMMOGRAPHIC FINDINGS: No suspicious mass or architectural distortion, malignant calcification, skin thickening or retractio n or significant new or developing density is detected. There are scattered bilateral benign calcific ations. ULTRASOUND: Targeted ultrasound at the area of complaint corresponds to muscle tissue. No suspicious mass or shad owing is detected. IMPRESSION: 1. No mammographic evidence of malignancy 2. Routine annual mammographic screening is recommended BI-RADS Category 2: Benign finding(s). Reviewed, dictated and finalized at location A. IMPRESSION: 1. No mammographic evidence of malignancy 2. Routine annual mammographic screening is recommended BI-RADS Category 2: Benign finding(s).
== END 2022-03-20 08:06 | disposition home or self-care (01) ==
LOC: CHSIMG 08:08
PROVIDERS: PCP Internal Medicine; Visit Provider Obstetrics & Gynecology
DX: N63.13 Unspecified lump in the right breast, lower outer quadrant (principal)
CPT/HCPCS: 76642; 77062; 77066; G0279

== ENCOUNTER 2022-04-06 09:33 | Outpatient (CLI) | payer MEDICARE, OTHER, SELFPAY | END 2022-04-06 09:34 | disposition home or self-care (01) | LOC: ANHSURGERY 09:38 | PROVIDERS: PCP Internal Medicine; Visit Provider Surgery | DX: Z01.812 Encounter for preprocedural laboratory examination (principal); K40.20 Bilateral inguinal hernia, without obstruction or gangrene, not specified as recurrent | CPT/HCPCS: 36415; 86850; 86900; 86901 ==

== ENCOUNTER 2022-04-12 00:10 | Day surgery (SDC) | payer MEDICARE, OTHER, SELFPAY ==
[2022-04-04 14:58] VITALS: BMI 20.8
--- NOTE | 2022-04-04 15:08 | PC.NURSE ---
PRE-OP INSTRUCTIONS, PLEASE READ CAREFULLY Report to the Outpatient Waiting Room, entrance under the green pavilion located off [facility], at time _0730_ on date _04/12/22_. OR Time: _0930_. - You and your visitor will be asked to self-screen and do not enter if you have any COVID symptoms. - Only one visitor and NO children visitors are allowed at this time. - The patient visitor is requested to leave or wait in car when not with patient due to restrictions. - A mask is required within the hospital. Patients may have clear liquids (water, carbonated beverages, clear teas, apple juice) until 3 hours prior to surgery (0630 AM) with a maximum of 20 ounces. - No food from midnight until time of surgery Take the following medications with a SIP of water the morning of surgery: __NONE__ Medications to discontinue per ANESTHESIA - _VITAMINS/SUPPLEMENTS 3 DAYS PRIOR TO SURGERY, Date to take last dose 04/08/22_ Please no make-up, nail b[place], hairspray, perfume, deodorant, or body powder the day of surgery. No jewelry (including any body piercings) or valuables the day of surgery, leave them at home. Please take a shower or bath the night before, or the morning of, surgery with an antibacterial soap. Wear comfortable, loose fitting clothing. - Jewelry must be removed prior to entering the operating room. Rings and piercings that are not removed may be cut off. - The hospital will not accept responsibility for valuables. - Please leave all valuables, including medications, at home the day of surgery. If you are going home after surgery, a licensed utility worker driver must drive you home. - NO public transportation without another adult. - We recommend that an adult stay with you for 24 hours following discharge. - We also recommend that you do not drive, make important decision, drink alcoholic beverages, or take any drugs that were not prescribed by your health care provider for at least 24 hours after your discharge time. Follow any additional instructions given to you from your surgeon. HIBICLENS SHOWER AM OF SURGERY If you or anyone in your household have experienced Covid symptoms in the past week, please notify your surgeon or the nurse liaison at the phone number below for possible testing. Telephone instructions given to ___PT and asked if any additional questions and then verbalized understanding. Patient advised to call surgeon office or pre surgery nurse liaison [phone] if any additional questions.
[2022-04-12] VITALS (11 sets, daily range): BP systolic 124–182; BP diastolic 69–95; PULSE 54–77; RESP 13–20; TEMP 36.5; O2SAT 95–100
[2022-04-12] MEDS: KETOROLAC 15 MG/ML VIAL (*BKC) IV PUSH (08:30)
[2022-04-12] MEDS: ACETAMINOPHEN 500 MG TABLET 1000 MG PO (08:30)
[2022-04-12] MEDS: LACTATED RINGERS 1,000 ML 30 ML IV CONT ×2 (08:30→11:34)
--- NOTE | 2022-04-12 08:39 | P.PNAN_ITS ---
Anes - Initial Pre Proc Eval Procedure: Operation Date: 04/12/22 09:30 Proposed Procedures p Laparoscopic Bilateral Inguinal Hernia Repair with Mesh, Davinci Assisted - Clay An DO Date/Time: 04/12/22 08:39 Surgeon: Clay An DO Pre Op Diagnosis: bilat inguinal hernia Patient Data Age: 66 Gender: F Height: 1.68 m Weight: 58.63 kg Allergies Allergy/AdvReac Type Severity Reaction Status Date / Time No Known Allergies Allergy Verified 04/04/22 14:57 Home Medications Medication Instructions Recorded Confirmed Type atorvastatin 40 mg tablet 40 mg PO DAILY 03/08/20 04/04/22 History cyanocobalamin (vitamin B-12) 2,000 mcg PO DAILY 05/10/21 04/04/22 History 1,000 mcg tablet ergocalciferol (vitamin D2) 400 400 unit PO DAILY 05/10/21 04/04/22 History unit capsule potassium chloride 20 mEq 40 meq PO DAILY 10 days #20 tabs 05/12/21 04/04/22 Rx tablet,extended release(part/cryst) (Klor-Con M) cranberry extract 425 mg capsule 425 mg PO DAILY 03/15/22 04/04/22 History losartan 100 mg tablet 100 mg PO DAILY 03/15/22 04/04/22 History Patient hx anesthesia problems: none Family hx anesthesia problems: none Results Review: All pre-operative results and documents have been reviewed as part of the pre- operative evaluation. [facility] Past Medical History Medical History Achilles tendinitis of left lower extremity Arthritis of foot, left, degenerative Cystocele Posterior calcaneal exostosis Vaginal delivery x2 Surgical History Surgical History H/O of anterior colporrhaphy 2010 History of hysterectomy 03/27/16 Family History Family History Father Acute myocardial infarction, Onset Age: 82 Patient's father is Mother Patient's mother is Social History Social History Smoking packs per day: 1 Smoking cigarettes per day: 20.0 Years smoked: 40 Smoking pack-years: 40.00 Smoking status: Current every day smoker Tobacco type: cigarettes Second hand tobacco smoke exposure: Yes Alcohol intake: current Drinks per week: 3 Substance use: never Substance use type: does not use Living arrangements: with family Gender identity (if verbalized by the patient): Female Spiritual care concerns: No Agree to blood products: Yes Anes - Eval Final PreProcedure Day of Procedure 04/12/22 08:39 Patient weight: normal Heart: regular rate and rhythm Lungs: clear to auscultation Airway: Mallampati scale class II Neurological: alert and oriented Last oral intake: >/= 8 hours ASA classification: III Emergent: no Anesthetic plan: proceed Anesthesia type and monitoring: general ETT and standard monitoring Results Review: All pre-operative results and documents have been reviewed as part of the pre- operative evaluation. Informed Consent: The patient's anesthetic plan and its attendant risks and benefits were discussed with the patient/family/POA. Questions were solicited and answers provided to the satisfaction of the patient/family/POA.
--- NOTE | 2022-04-12 09:29 | WPDHPUPDATE1 ---
History and Physical Update Update Date/Time: 04/12/22 09:29 History and Physical has been reviewed, including an updated exam of the patient. There are NO changes in the patient's condition. Risks, benefits, and alternatives have been discussed and questions answered. Patient agrees to proceed with procedure.
[2022-04-12] MEDS: ceFAZolin 2 GM/D5W 50 ML 2 GM/50 ML BAG IVPB (09:47)
--- NOTE | 2022-04-12 11:52 | W.PM.PROC2 ---
Procedure Note - Detailed Date of Procedure 04/12/22 Pre-op Diagnosis bilateral inguinal hernia Post-op Diagnosis Same (Bilateral indirect inguinal hernia) Procedure Performed Laparoscopic bilateral inguinal hernia repair with mesh, da Purnima assisted Surgeon Clay An DO Anesthesia General and Local (0.5% bupivacaine with epinephrine) Indications This is a 66-year-old woman who presented with a right groin bulge that she had noticed for the past several years. After losing some weight recently, she did notice that the bulge is more visible and prominent. She does have some occasional discomfort in both groins. She had not noticed a prior hernia in the left groin a CT was obtained about 1 year ago and this showed evidence of bilateral inguinal hernias. She was found have reducible bilateral inguinal hernias on exam. Discussions were made with the patient about treatment options and decision was made to proceed with a robotic assisted laparoscopic bilateral inguinal hernia repair with mesh. Findings Laparoscopic bilateral inguinal hernia repair was performed. The patient was found to have bilateral indirect inguinal hernias. A robotic transabdominal preperitoneal approach was utilized. A wide enough preperitoneal pocket was created on each side and a large Bard 3DMax mid mesh was placed overlying the entire myopectineal orifice on each side. No specimens were obtained for pathology. Description of Procedure Procedure as well as risks, benefits, and alternatives were discussed with the patient. Written consent was obtained and placed in chart prior to procedure. Patient was brought back to surgical suite. She was placed supine on operating table. Time-out was done to confirm patient and procedure. She was then intubated by Anesthesia Department. Her abdomen was prepped and draped in sterile fashion using chlorhexidine prep. 0.5% bupivacaine with epinephrine was infiltrated at each location for incision. A 12 millimeter transverse incision was made just superior to the umbilicus using a 15 blade scalpel. Blunt dissection was carried out down to the linea alba. A vertical incision was made at the linea alba using a 15 blade scalpel. The peritoneum was then bluntly entered. A 12 millimeter trocar was inserted and carbon dioxide insufflation was used to create a pneumoperitoneum. A camera was inserted and the abdominal cavity was inspected. The patient was placed in slight Trendelenburg position. An 8 millimeter incision was made on the right lateral abdomen and an 8 millimeter trocar was inserted under direct visualization. Another 8 millimeter incision was made in the left lateral abdomen and an 8 millimeter trocar was inserted under direct visualization. The robotic arms were brought up to the patient's bedside and secured to the ports. The camera and instruments were inserted. I then moved over to the robotic console and took control of the camera and instruments. After careful inspection of the abdominal cavity, I began scoring the peritoneum along the right lower quadrant using scissors with electrocautery. The preperitoneal plane was entered and this was carefully dissected caudally along the inferior epigastric vessels. Careful dissection with scissors with electrocautery and blunt dissection was used to continue this dissection. I dissected far enough laterally to allow for mesh placement, and also dissected medially to identify the pubic arch and Juan Alberto's ligament. The hernia sac was identified and carefully dissected posteriorly. The round ligament was identified and transected with scissors with electrocautery to allow for adequate posterior dissection for mesh placement. Once an adequate pocket was created, I then placed the mesh within the preperitoneal pocket and carefully unfolded it. The mesh was centered on the hernia defect with adequate overlap circumferentially. The inferior edge of the mesh was inspected to ensure anmol
[2022-04-12] MEDS: fentaNYL CITRATE INJ (*CRX) 100 MCG/2 ML VIAL 25 MCG IV PUSH ×3 (11:56→12:14)
[2022-04-12] MEDS: oxyCODONE HCL (*CRX) 5 MG TAB IR PO (13:09)
== END 2022-04-12 13:45 | disposition home or self-care (01) ==
PROVIDERS: PCP Internal Medicine; Visit Provider Surgery
PROC: 8E0Y4CZ Robotic Assisted Procedure of Lower Extremity, Percutaneous Endoscopic Approach (ICD-10-PCS; CPT 49650; principal; 2022-04-12 09:30)
DX: K40.20 Bilateral inguinal hernia, without obstruction or gangrene, not specified as recurrent (principal); F17.210 Nicotine dependence, cigarettes, uncomplicated
CPT/HCPCS: 49650; S2900; A9270; C1781; J0690; J1100; J1885; J2250; J2405; J2704; J3010; J7120

== ENCOUNTER 2022-05-04 08:41 | Outpatient (CLI) | payer MEDICARE, OTHER, SELFPAY ==
--- NOTE | ~2022-05-04 | CT_ITS ---
EXAMINATION: CT lung screening DATE: 05/04/2022 09:05 INDICATION: History of nicotine dependence. TECHNIQUE: Computed tomography (CT) of the chest was performed without intravenous contrast. The dose -length product was 63.47 mGy-cm. Automated exposure control and iterative reconstruction technique w ere employed. COMPARISON: CT dated 03/16/2021 FINDINGS: Stable low-density lesion right hepatic lobe, most likely benign cysts. Heart size normal. There is atherosclerosis of the aorta and coronary arteries. Moderate thoracic spondylosis. Wedge com pression deformities of the midthoracic spine there is emphysema. No endobronchial lesions. There is focal atelectasis/scarring in the superior segment of the left lower lobe, unchanged from prior exami nation. There are a few small 1-2 mm nodules in the upper lobes, likely benign. No peripheral consoli dation. No pneumothorax. IMPRESSION: 1. Lung-RADS category 2: Benign appearance or behavior. Continue annual screening with noncontrast lo w-dose chest CT in 12 months. Reviewed, dictated and finalized at location B. IMPRESSION: 1. Lung-RADS category 2: Benign appearance or behavior. Continue annual screeni with noncontrast low-dose chest CT in 12 months.
== END 2022-05-04 08:42 | disposition home or self-care (01) ==
LOC: CHSIMG 08:42
PROVIDERS: PCP Internal Medicine; Visit Provider Internal Medicine
DX: Z12.2 Encounter for screening for malignant neoplasm of respiratory organs (principal); Z87.891 Personal history of nicotine dependence
CPT/HCPCS: 71271

== ENCOUNTER 2023-03-22 13:12 | Outpatient (CLI) | payer MEDICARE, OTHER, SELFPAY ==
--- NOTE | ~2023-03-22 | MM_ITS ---
EXAMINATION: MM screening [facility] BI w [facility]via HISTORY: Screening TECHNIQUE: Craniocaudal and mediolateral oblique 3-D tomosynthesis images were obtained and synthetic 2-D images were generated. CAD analysis was submitted and interpreted. COMPARISON: Comparison to multiple prior studies sequentially, with oldest reviewed study dated 07/07. BREAST PARENCHYMAL COMPOSITION: There are scattered areas of fibroglandular density. FINDINGS: There is no evidence of suspicious mass, calcification, or architectural distortion to sugg est malignancy in either breast. There has been no suspicious interval change. IMPRESSION: 1. No mammographic evidence of malignancy. 2. Recommend routine screening mammography in one year. BI-RADS Category 1: Negative Reviewed, dictated and finalized at location A.
== END 2023-03-22 13:13 | disposition home or self-care (01) ==
LOC: CHSIMG 13:13
PROVIDERS: PCP Internal Medicine; Visit Provider Obstetrics & Gynecology
DX: Z12.31 Encounter for screening mammogram for malignant neoplasm of breast (principal)
CPT/HCPCS: 77063; 77067

== ENCOUNTER 2023-05-10 12:29 | Outpatient (CLI) | payer MEDICARE, OTHER, SELFPAY ==
--- NOTE | ~2023-05-10 | US_ITS ---
EXAMINATION: US carotid duplex BI DATE: 05/10/2023 13:00 INDICATION: Carotid stenosis TECHNIQUE: Grayscale, color Doppler, and pulsed Doppler images of the cervical carotid arteries were obtained. The degree of vessel stenosis is placed in one of the following categories: normal, <50%, 5 0-69%, >=70% but less than near-occlusion, near-occlusion, or total occlusion. Note that percent sten osis relative to normal distal artery lumen diameter is indirectly measured from velocity measurement s as described by Luis Alfredo, et al. Radiology 2003; 229:340-346. COMPARISON: None. FINDINGS: RIGHT: The right common carotid artery (CCA) peak systolic velocity (PSV) is 75 cm/s. The right internal car otid artery (ICA) PSV is 85 cm/s. The right ICA end-diastolic velocity (EDV) is 25 cm/s. The right IC A/CCA PSV ratio is 1.1. Grayscale and color Doppler images yield an estimate of <50% diameter reducti on from plaque in the ICA. The external carotid artery (ECA) PSV is 78 cm/s. There is antegrade flow in the right vertebral artery. LEFT: The left CCA PSV is 68 cm/s. The left ICA PSV is 88 cm/s. The left ICA EDV is 30 cm/s. The left ICA/C CA PSV ratio is 1.3. Grayscale and color Doppler images yield an estimate of 50-69% diameter reductio n from plaque in the ICA. The ECA PSV is 91 cm/s. There is antegrade flow in the left vertebral arter y. IMPRESSION: 1. <50% stenosis in the right internal carotid artery. 2. <50% stenosis in the left internal carotid artery. Reviewed, dictated and finalized at location A.
--- NOTE | ~2023-05-10 | CT_ITS ---
EXAMINATION:CT lung screening DATE: 05/10/2023 13:05 INDICATION: Tobacco use. Current smoker with 48 pack year history. TECHNIQUE: Computed tomography (CT) of the chest was performed without intravenous contrast. Automate d exposure control and iterative reconstruction technique were employed. The dose-length product (DLP ) was 72.02 mGy-cm. COMPARISON: Chest CT 05/04/2022 FINDINGS: There is mild emphysema. There is a 3 mm nodule in right upper lobe. There is a stable 4 mm nodule in left lower lobe. No pleural effusion. The heart size is normal. There are coronary artery calcifications. No pericardial effusion. There is calcified atherosclerosis of the aorta and many of the other arteries. There is a 10 mm cyst in the liver. There are old healed right rib fractures. The re is mild chronic anterior wedging of multiple thoracic vertebral bodies. There is severe thoracic s pondylosis. IMPRESSION: 1. Lung-RADS category 2: Benign appearance or behavior. Continue annual screening with noncontrast lo w-dose chest CT in 12 months. Reviewed, dictated and finalized at location E. IMPRESSION: 1. Lung-RADS category 2: Benign appearance or behavior. Continue annual screeni ng with noncontrast low-dose chest CT in 12 months.
== END 2023-05-10 12:30 | disposition home or self-care (01) ==
LOC: CHSIMG 12:30
PROVIDERS: PCP Internal Medicine; Visit Provider Internal Medicine
DX: Z12.2 Encounter for screening for malignant neoplasm of respiratory organs (principal); Z87.891 Personal history of nicotine dependence; I65.23 Occlusion and stenosis of bilateral carotid arteries
CPT/HCPCS: 71271; 93880

== ENCOUNTER 2023-05-23 08:48 | Inpatient (IN) | payer MEDICARE, OTHER, SELFPAY ==
[2023-05-23] VITALS (14 sets, daily range): BP systolic 68–116; BP diastolic 41–80; PULSE 56–74; RESP 18–20; TEMP 35.9–36.8; O2SAT 96–100; BMI 22.5
--- NOTE | ~2023-05-23 | XR_ITS ---
XR chest 1V portable DATE: 05/23/2023 10:00 INDICATION: Cough. Hypotension. TECHNIQUE: Portable AP chest on 05/23/2023 at 1000 hours COMPARISON: 05/10/2023 CT lung screening 05/10/2021 2 view chest FINDINGS: Normal heart size. There is thoracic aortic calcification and minimal tortuosity. No hilar or mediastinal enlargement. No pulmonary infiltrate or consolidation, pleural effusion or pulmonary vascular congestion or pneumo thorax. There are old healed lateral right fifth, posterior right sixth through ninth rib fractures and likel y old lateral left seventh and eighth rib fracture deformities.. IMPRESSION: No active cardiopulmonary disease Aortic atherosclerosis Reviewed, dictated and finalized at location B.
--- NOTE | ~2023-05-23 | CT_ITS ---
Non-contrast CT scan of the Abdomen and Pelvis Clinical indication: Weakness, hypotension, gastroenteritis Technique: 2.5 mm axial scans were obtained through the abdomen and pelvis without intravenous or or al contrast. Dose reduction technique was used on this scan by utilizing automated exposure control a nd iterative reconstruction technique. The dose-length product (DLP) was 242.91 mGy-cm. COMPARISON: 05/11/2021 Findings: Images through the lung bases reveal no abnormalities. There is no evidence of renal or ureteral calculi. The kidneys and the ureters are nondilated. Subcentimeter probable hepatic cysts are present. The spleen, pancreas, and adrenals appear normal. S uspected gallbladder wall thickening. There are atherosclerotic calcifications of the aorta. Suspected extensive mild large bowel wall thickening. No bowel obstruction. No abscess or free air. Images through the pelvis were performed. There is no evidence of ascites or lymphadenopathy. Urinary bladder unremarkable. No adnexal mass seen. No ascites. Impression: Probable mild diffuse large bowel wall thickening. Correlate for infectious/inflammatory pancolitis. Suspected gallbladder wall thickening. Correlate for acute cholecystitis. Consider ultrasound and/or HIDA scan for further evaluation. Reviewed, dictated and finalized at location . Impression: Probable mild diffuse large bowel wall thickening. Correlate for infectious/inf lammatory pancolitis. Suspected gallbladder wall thickening. Correlate for acute cholecystitis. Consi connor ultrasound and/or HIDA scan for further evaluation.
--- NOTE | ~2023-05-23 | US_ITS ---
Limited Abdominal Sonogram: Real-time sonographic imaging of the right upper quadrant was performed. Clinical History: Cholecystitis Findings: The liver appears normal with no evidence of mass lesion or bile duct dilatation. Main por bharati vein demonstrates normal direction of flow. The gallbladder is well distended, with gallbladder s ludge. Gallbladder wall thickened to 6 mm. The common bile duct measures 8 mm. The visualized pancre as, aorta, and IVC are unremarkable. Impression: Gallbladder sludge with thickening of the gallbladder wall. Correlate for acute cholecystitis. Consid er HIDA scan as indicated. Reviewed, dictated and finalized at location M. Impression: Gallbladder sludge with thickening of the gallbladder wall. Correlate for acute cholecystitis. Consider HIDA scan as indicated.
--- NOTE | 2023-05-23 09:27 | ED.DIZZY ---
HPI - Dizziness General Chief Complaint: Dizziness Stated Complaint: weakness Time Seen by Provider: 05/23/23 09:26 Source: patient Mode of arrival: ambulatory Limitations: no limitations History of Present Illness HPI Narrative: 67-year-old female with a history of smoking,hypertension, arthritis, dyslipidemia, achiless tendinitis presents to the ER with -- 1 week history of flu-like symptoms which have now resolved --generalized weakness. The patient has no specific complaints. She just does not feel well. The patient had gastroenteritis like symptoms 1 week ago which resolved after 3 days. -- dizziness. The patient feels lightheaded and has an unsteady gait. No focal neuro deficits. The patient went to a primary care physician and has had blood work which was unremarkable. MD elicited complaint: dizziness and lightheadedness Onset (ago): day(s) ( Off and on for the past 7 days.) Timing: gradual onset Severity: mild Description: lightheadedness History of similar symptoms: No Exacerbating factors: change in body position Relieving factors: nothing Associated symptoms: denies other symptoms Associated neuro symptoms: other ( No other neuro deficits.) Related Data Home Medications Medication Instructions Recorded Confirmed atorvastatin 40 mg tablet 40 mg PO DAILY 03/08/20 05/23/23 cyanocobalamin (vitamin B-12) 2,000 mcg PO DAILY 05/10/21 05/23/23 1,000 mcg tablet ergocalciferol (vitamin D2) 400 400 unit PO DAILY 05/10/21 05/23/23 unit capsule cranberry extract 425 mg capsule 425 mg PO DAILY 03/15/22 05/23/23 losartan 100 mg tablet 100 mg PO DAILY 03/15/22 05/23/23 Allergies Allergy/AdvReac Type Severity Reaction Status Date / Time No Known Allergies Allergy Verified 05/23/23 09:06 Review of Systems Review of Systems: All systems reviewed & are unremarkable except as noted in HPI and below Constitutional: Constitutional: Reports as per HPI and Reports no additional constitutional complaints Eyes: Eyes: Reports as per HPI and Reports no additional eye complaints ENT: Reports system reviewed and no additional complaints, except as documented and Reports as per HPI Cardiovascular: Cardiovascular: Reports as per HPI and Reports no additional cardiovascular complaints Respiratory: Respiratory: Reports as per HPI and Reports no additional respiratory complaints Gastrointestinal: Gastrointestinal: Reports as per HPI Comments: She had vomiting and diarrhea which have resolved. It started 7 days ago and continued for 3 days with spontaneous resolution. Genitourinary: Genitourinary: Reports no additional female genitourinary complaints Musculoskeletal: Musculoskeletal: Reports no additional musculoskeletal complaints and Reports as per HPI Integumentary/Breasts: Skin/Breast: Reports system reviewed and no additional complaints, except as docu and Reports as per HPI Neurologic: Reports system reviewed and no additional complaints, except as documented and Reports as per HPI Psychiatric: Psychiatric: Reports no additional psychiatric complaints and Reports as per HPI Endocrine: Endocrine: Reports no additional endocrine complaints and Reports as per HPI Hematologic/Lymphatic: Hematologic/Lymphatic: Reports no additional hematologic/lymphatic complaints and Reports as per HPI Allergic/Immunologic: Allergic/Immunologic: Reports no additional allergic/immunologic complaints and Reports as per HPI [facility] Past Medical History Medical History Achilles tendinitis of left lower extremity Arthritis of foot, left, degenerative Cystocele Posterior calcaneal exostosis Vaginal delivery x2 Surgical History Surgical History H/O of anterior colporrhaphy 2010 History of hysterectomy 03/27/16 Family History Family History Father D
--- NOTE | 2023-05-23 09:39 | PC.NURSE ---
On 05/23/23, the student, [yesenia caballero ], provided care and completed [facility] documentation on this patient. I have reviewed the student's documentation and agree with the findings.
--- NOTE | 2023-05-23 09:40 | ECG_ITS ---
Measurements Intervals Elliott Rate: 58 P: 54 DE: 173 QRS: 81 QRSD: 104 T: 54 QT: 464 QTc: 457 Interpretive Statements SINUS BRADYCARDIA NONSPECIFIC ST ABNORMALITY BORDERLINE ECG NO PREVIOUS ECG AVAILABLE FOR COMPARISON Electronically Signed On 05-23-2023 18:23:43 CDT by Juan Cuevas M.D.
[2023-05-23 09:55] LABS: Hematocrit 38.8 % (35.0-42.0); Hemoglobin 14.1 g/dL (11.7-13.8); Mean Corpuscular HGB Conc 36.3 g/dL (32.0-36.0); Mean Corpuscular Hemoglobin 34.7 pg (27.0-31.0); Mean Corpuscular Volume 95.6 fL (78.0-102.0); Mean Platelet Volume 8.7 fl (9.2-11.8); Platelet Count Result 356 K/mm3 (150-420); Red Blood Count 4.06 M/mm3 (4.20-5.40); Red Cell Distribution Width 11.9 % (11.6-14.4); White Blood Count 17.6 K/mm3 (4.8-10.8)
[2023-05-23 10:11] LABS: Band Neutrophils Percent 0 % (0-6); Basophils Percent Manual 0 % (0-1); Eosinophils Percent Manual 0 % (1-6); Lymphocytes Absolute Manual 2.46 K/mm3 (1.1-4.5); Lymphocytes Percent Manual 14 % (18-44); Metamyelocytes Percent 2 %; Monocytes Absolute Manual 1.05 K/mm3 (0.1-0.90); Monocytes Percent Manual 6 % (3-9); Myelocytes Percent 1 %; Neutrophils Absolute Manual 13.55 K/mm3 (1.7-7.2); Neutrophils Percent Manual 77 % (46-73); Platelet Estimate Adequate (Adequate); Total Cells Counted 100
[2023-05-23] MEDS: LACTATED RINGERS 1,000 ML 999 ML IV CONT (10:16)
[2023-05-23 10:18] LABS: Alanine Aminotransferase 20 U/L (14-59); Albumin Level 2.7 g/dL (3.4-5.0); Alkaline Phosphatase 76 U/L (46-116); Anion Gap 15 mmol/L (8-16); Aspartate Amino Transferase 14 U/L (15-37); Bilirubin,Total 0.5 mg/dL (0.00-1.00); Blood Urea Nitrogen 55 mg/dL (7-18); Calcium 9.2 mg/dL (8.5-10.1); Carbon Dioxide 24 mmol/L (21-32); Chloride 85 mmol/L (98-108); Estimated Glomerular Filt Rate 20; Glucose 105 mg/dL (70-99); Lipase 150 U/L (16-77); Osmolality Calculated 273 mOsm/kg (285-295); Potassium 2.9 mmol/L (3.5-5.1); Sodium 124 mmol/L (136-145); Total Protein 6.8 g/dL (6.4-8.2); Troponin I 5.9 ng/L (0.00-60.4)
[2023-05-23 10:19] LABS: Lactic Acid Reflex 2.3 mmol/L (0.4-2.0)
[2023-05-23 10:26] LABS: Influenza A QL RT-PCR Negative (Negative); Influenza B QL RT-PCR Negative (Negative); RSV RNA, RT-PCR Negative (Negative); SARS-CoV-2 RNA PCR Negative (Negative)
[2023-05-23] MEDS: SODIUM CHLORIDE 0.9% IV 1,000 ML 999 ML IV CONT (11:10)
[2023-05-23 12:11] LABS: Appearance Urine Clear (Clear); Bilirubin Urine Negative (Negative); Blood Urine 2+ (Negative); Color Urine Light Yellow (Yellow); Glucose Urine UA Trace (Negative); Ketones Urine Negative (Negative); Leukocyte Esterase Ur Negative LEU/UL (Negative); Nitrate Urine Negative (Negative); Protein Urine Negative (Negative); Specific Grav Ur <= 1.005 (1.010-1.020); Urobilinogen Urine 0.2 mg/dL (0.2-1.0)
[2023-05-23 12:16] LABS: Add Urine Microscopic? YES; Bacteria Urine 1+ /hpf; Squamous Epithelial Cell Urine Few /hpf (Few); WBC Urine 0-3 /hpf (0-3)
[2023-05-23 12:52] LABS: Reflex Lactic Acid Yes or No Add Lactic
[2023-05-23 13:49] LABS: Lactic Acid 0.8 mmol/L (0.4-2.0)
[2023-05-23] MEDS: metroNIDAZOLE 500 MG/ISO 100ML 500 MG/100 ML BAG 100 MG IVPB ×2 (14:34→21:16)
[2023-05-23] MEDS: KCL 20 MEQ/SW 100 ML 100 ML 50 MEQ IVPB (14:34)
[2023-05-23] MEDS: SODIUM CHLORIDE 0.9% IV 1,000 ML 100 ML IV CONT (14:35)
--- NOTE | 2023-05-23 15:03 | ADMGEN ---
This patient, Marisel Kwan, was admitted to 2nd Floor Room 205-2. Patient/family oriented to hospital policies and general routines including ID bracelet, bed and alarms, visiting hours, pain management, procedures, bathroom and other care routines, personal items, smoking policy, room service/diet, and visiting hours. Information on how to activate the Rapid Response Team has been discussed. Patient/Family are encouraged to report perceived risks to care and to ask questions if they do not understand what they are told or what they should do.
[2023-05-23] MEDS: SACCHAROMYCES BOULARDII 250 MG CAPSULE PO (17:03)
[2023-05-24] MEDS: SODIUM CHLORIDE 0.9% IV 1,000 ML 100 ML IV CONT ×2 (00:47→11:53)
[2023-05-24 05:19] LABS: Hematocrit 35.3 % (35.0-42.0); Hemoglobin 12.3 g/dL (11.7-13.8); Mean Corpuscular HGB Conc 34.8 g/dL (32.0-36.0); Mean Corpuscular Volume 97.5 fL (78.0-102.0); Mean Platelet Volume 8.5 fl (9.2-11.8); Platelet Count Result 333 K/mm3 (150-420); Red Blood Count 3.62 M/mm3 (4.20-5.40)
[2023-05-24] MEDS: metroNIDAZOLE 500 MG/ISO 100ML 500 MG/100 ML BAG 100 MG IVPB ×3 (05:29→22:05)
[2023-05-24 05:35] LABS: Anion Gap 11 mmol/L (8-16); Blood Urea Nitrogen 36 mg/dL (7-18); Calcium 8.6 mg/dL (8.5-10.1); Carbon Dioxide 26 mmol/L (21-32); Chloride 101 mmol/L (98-108); Estimated CRCL calculation 37 ml/min; Estimated Glomerular Filt Rate 43; Glucose 101 mg/dL (70-99); Osmolality Calculated 294 mOsm/kg (285-295); Potassium 3.2 mmol/L (3.5-5.1); Sodium 138 mmol/L (136-145)
[2023-05-24 05:42] LABS: Band Neutrophils Percent 0 % (0-6); Basophils Percent Manual 0 % (0-1); Eosinophils Percent Manual 0 % (1-6); Lymphocytes Absolute Manual 2.85 K/mm3 (1.1-4.5); Lymphocytes Percent Manual 19 % (18-44); Monocytes Absolute Manual 1.35 K/mm3 (0.1-0.90); Monocytes Percent Manual 9 % (3-9); Neutrophils Absolute Manual 10.35 K/mm3 (1.7-7.2); Neutrophils Percent Manual 69 % (46-73); Total Cells Counted 100
[2023-05-24 05:43] LABS: Metamyelocytes Percent 2 %; Myelocytes Percent 1 %; Platelet Estimate Adequate (Adequate)
[2023-05-24 07:35] VITALS: BP 93/45; PULSE 65; RESP 16; TEMP 36.1; O2SAT 95
[2023-05-24 07:40] VITALS: BP 93/45; PULSE 65; RESP 16; TEMP 36.1; O2SAT 95
--- NOTE | 2023-05-24 08:07 | PM.IMHP ---
H&P: HPI History of Present Illness Date/Time: 05/24/23 08:07 Chief Complaint: Diarrhea , hypotension, Leukocytoid Narrative: This is a 67 year old female that states she has had diarrhea for the past two weeks and she thought she just had a flu. Patient states that she has had hypertension, hyperlipidemia the only surgery that she has had has been female surgeries. Mrs. Kwan came to the emergency room due to she was dizzy every time she stood up and was found to be hypotensive, Hypokalemia, dehydrated, acute kidney injury, colitis, uti. She has been admitted and started on Flagyl and Rocephin instead of Cipro or Levaquin due to her prolonged QT wave. We will continue IVF and pateint C-diff is negative so we can give some Imodium if needed. Patient is feeling better today her cR and BUN are trending down she was given a kryder and her potassium level is improving. Patient WBC is trending down from 17 to 15 we will continue with medication and follow up tomorrow Review of Systems Review of Systems: abd pain, Diarrhea All systems reviewed & are unremarkable except as noted in HPI and below PMFSH Past Medical History Medical History Achilles tendinitis of left lower extremity Arthritis of foot, left, degenerative Cystocele Posterior calcaneal exostosis Vaginal delivery x2 Surgical History Surgical History H/O of anterior colporrhaphy 2010 History of hysterectomy 03/27/16 Family History Family History Father Acute myocardial infarction, Onset Age: 82 Patient's father is Mother Patient's mother is Social History Social History Smoking packs per day: 1 Smoking cigarettes per day: 20.0 Years smoked: 40 Smoking pack-years: 40.00 Smoking status: Current every day smoker Tobacco type: cigarettes Second hand tobacco smoke exposure: No Alcohol intake: current Drinks per week: 6 Substance use: never Substance use type: does not use Lack of Transportation: No Lack of Food: Never True Current Housing: I Have Housing Concerned About Future Housing: No Difficulty Paying Gas/Electric Bills: No Difficulty Paying for Meds: No Currently Unemployed: No Education: High School Diploma/GED Difficulty w/ Childcare or Family Care: No Living arrangements: with family Occupation/Education: retired Gender identity (if verbalized by the patient): Female Sexual Orientation (if Verbalized by the Patient): Straight or Heterosexual Spiritual care concerns: No Agree to blood products: Yes Meds Home Medications and Allergies Home Medications Medication Instructions Recorded Confirmed Type atorvastatin 40 mg tablet 40 mg PO DAILY 03/08/20 05/23/23 History cyanocobalamin (vitamin B-12) 2,000 mcg PO DAILY 05/10/21 05/23/23 History 1,000 mcg tablet ergocalciferol (vitamin D2) 400 400 unit PO DAILY 05/10/21 05/23/23 History unit capsule potassium chloride 20 mEq 40 meq PO DAILY 10 days #20 tabs 05/12/21 05/23/23 Rx tablet,extended release(part/cryst) ([facility]via-Con M) cranberry extract 425 mg capsule 425 mg PO DAILY 03/15/22 05/23/23 History losartan 100 mg tablet 100 mg PO DAILY 03/15/22 05/23/23 History Allergies Allergy/AdvReac Type Severity Reaction Status Date / Time No Known Allergies Allergy Verified 05/23/23 09:06 Vital Signs Vital Signs - 24 hr 05/23/23 09:44 05/23/23 09:45 05/23/23 09:45 Temperature Pulse Rate 69 74 70 Respiratory Rate Blood Pressure 80/49 L 76/41 L 83/49 L Pulse Oximetry Oxygen Delivery 05/23/23 11:21 05/23/23 09:47 05/23/23 09:49 Temperature Pulse Rate 68 70 Respiratory Rate 20 Blood Pressure 68/45 L Pulse Oximetry 100
[2023-05-24] MEDS: LOPERAMIDE HCL 2 MG CAPSULE PO (08:41)
[2023-05-24] MEDS: ATORVASTATIN 40 MG TABLET PO (08:41)
[2023-05-24] MEDS: CHOLECALCIFEROL 400 UNITS TABLET (VIT D) PO (08:41)
[2023-05-24] MEDS: POTASSIUM CHLORIDE 20 MEQ ER TABLET 40 MEQ PO (08:41)
[2023-05-24] MEDS: SACCHAROMYCES BOULARDII 250 MG CAPSULE PO ×2 (08:42→16:08)
--- NOTE | 2023-05-24 15:00 | PC.NURSE ---
Patient reports that diarrhea is not occurring as frequently as before, she has only had 3 epispodes today and she is starting to feel much better. Patient is hoping to be able to go home tomorrow.
[2023-05-24 16:30] VITALS: BP 99/53; PULSE 64; RESP 16; TEMP 36.3; O2SAT 97
[2023-05-25] VITALS: BP 95/46; PULSE 64; RESP 17; TEMP 36.2; O2SAT 96
[2023-05-25] MEDS: SODIUM CHLORIDE 0.9% IV 1,000 ML 100 ML IV CONT (00:09)
[2023-05-25 05:36] LABS: Hematocrit 32.4 % (35.0-42.0); Hemoglobin 11.2 g/dL (11.7-13.8); Mean Corpuscular HGB Conc 34.6 g/dL (32.0-36.0); Mean Corpuscular Hemoglobin 34.7 pg (27.0-31.0); Mean Corpuscular Volume 100.3 fL (78.0-102.0); Mean Platelet Volume 8.4 fl (9.2-11.8); Platelet Count Result 296 K/mm3 (150-420); Red Blood Count 3.23 M/mm3 (4.20-5.40); Red Cell Distribution Width 12.5 % (11.6-14.4); White Blood Count 11.1 K/mm3 (4.8-10.8)
[2023-05-25 05:50] LABS: Anion Gap 9 mmol/L (8-16); Blood Urea Nitrogen 17 mg/dL (7-18); Calcium 8.2 mg/dL (8.5-10.1); Carbon Dioxide 27 mmol/L (21-32); Chloride 107 mmol/L (98-108); Estimated CRCL calculation 53 ml/min; Estimated Glomerular Filt Rate > 60; Glucose 99 mg/dL (70-99); Osmolality Calculated 297 mOsm/kg (285-295); Potassium 3.4 mmol/L (3.5-5.1); Sodium 143 mmol/L (136-145)
[2023-05-25 07:40] VITALS: BP 100/57; PULSE 62; RESP 16; TEMP 36.3; O2SAT 97
[2023-05-25] MEDS: metroNIDAZOLE 500 MG/ISO 100ML 500 MG/100 ML BAG 100 MG IVPB (08:03)
--- NOTE | 2023-05-25 08:50 | PM.IMPN ---
Progress Note: A&P Assessment and Plan (1) Hyponatremia: Code(s): E87.1 - Hypo-osmolality and hyponatremia Status: Acute Assessment and Plan: continue IVF gentle hydration Improved. Today is Na 143 Resolved. (2) Acute renal failure: Qualifiers: Acute renal failure type: unspecified Qualified Code(s): N17.9 - Acute kidney failure, unspecified Code(s): N17.9 - Acute kidney failure, unspecified Status: Acute Assessment and Plan: continue fluids avoid nephrotoxic medication Cr on 05/25 is 0.85 down from 2.45 on admission (3) Urinary tract infection: Qualifiers: Hematuria presence: without hematuria Urinary tract infection type: acute cystitis Qualified Code(s): N30.00 - Acute cystitis without hematuria Code(s): N39.0 - Urinary tract infection, site not specified Status: Acute Assessment and Plan: Rocephin for uti and colitis w flagyl U/A on admission was not overly concerning for infection. +1 bacteria. Patient is asymptomatic in terms of UTI. Stopping rocephin. (4) Tobacco abuse: Code(s): Z72.0 - Tobacco use Status: Acute Assessment and Plan: 1/2 pack a day patient declines nicotine patches states she does not need one (5) HTN (hypertension): Code(s): I10 - Essential (primary) hypertension Status: Acute Assessment and Plan: Hold bp medication hypotensive. Blood pressures reviewed and she is still running low. Will continue to hold HTN agents Continue with IVF at 100 ml per hour (6) HLD (hyperlipidemia): Code(s): E78.5 - Hyperlipidemia, unspecified Status: Acute Assessment and Plan: continue home medication stable (7) Acute hypokalemia: Code(s): E87.6 - Hypokalemia Status: Acute Assessment and Plan: K carlos given 3.4 today 05/25. She is receiving daily Potassium 40 meq. Will give an additional 20 meq this morning. Subjective Date/time seen: 05/25/23 08:50 Interval history: This is a 67 year old female with a PMH of HTN and HLD. She presented to [facility] on 05/24 with complaints of diarrhea and dizziness. In the ER she was found to have low blood pressures, electrolyte derangements, JEROMY with dehydration, concerns for UTI, and CT imaging concerning for colitis. She was admitted to the medical floor and started on IV antibiotics. Interval history, 05/25-Marisel looks well today. She is laying in bed and says that her diarrhea has stopped. She denies abdominal pain, nausea, or vomiting. She has had breakfast this morning and tolerated it well. I was wanting to keep her for one more day for IV fluid hydration given her blood pressures continue to be on the lower side of normal. The patient is really wanting to discharge today as she does not think she is going to have a ride home tomorrow. She says that she feels well enough to go today and she is not having dizziness with position changes or ambulation. I have agreed to d/c her today after a liter bolus of LR with the agreement that she wi Review of Systems Review of Systems: All systems reviewed & are unremarkable except as noted in HPI and below Objective Data Vital Signs Vital Signs: Vital Signs - 24 hr 05/24/23 16:30 05/25/23 00:00 05/25/23 07:40 Temperature 97.3 F L 97.1 F L 97.3 F L Pulse Rate 64 64 62 Respiratory Rate 16 17 16 Blood Pressure 99/53 L 95/46 L 100/57 L Pulse Oximetry 97 96 97 Oxygen Delivery Room Air Room Air Room Air Intake/Output Intake/Output: Intake & Output 05/22/23 05/23/23 05/24/23 05/25/23 23:59 23:59 23:59 23:59 Intake Total 2850 4970 1700 Balance 2850 4970 1700 Meds/Results Medications: Active Medications Generic Name Dose Route Start Last Admin Trade Name Freq PRN Reason Stop Dose Admin Acetaminophen 650 mg 05/23/23 11:22 Acetaminophen 325 Mg Tablet PO Q4H PRN Mild Pain (1-3) or Fever Atorvastatin Calcium
[2023-05-25] MEDS: POTASSIUM CHLORIDE 20 MEQ ER TABLET 40 MEQ PO (08:56)
[2023-05-25] MEDS: ATORVASTATIN 40 MG TABLET PO (08:56)
[2023-05-25] MEDS: CHOLECALCIFEROL 400 UNITS TABLET (VIT D) PO (08:56)
[2023-05-25] MEDS: SACCHAROMYCES BOULARDII 250 MG CAPSULE PO (08:56)
--- NOTE | 2023-05-25 09:26 | PM.DS ---
DS: Admitting Diagnosis Discharge Date 05/25 Admitting Diagnosis diarrhea DS: Discharge Diagnosis Discharge Diagnosis (1) Colitis: Code(s): K52.9 - Noninfective gastroenteritis and colitis, unspecified Status: Acute (2) Acute renal failure: Qualifiers: Acute renal failure type: unspecified Qualified Code(s): N17.9 - Acute kidney failure, unspecified Code(s): N17.9 - Acute kidney failure, unspecified Status: Acute (3) Hyponatremia: Code(s): E87.1 - Hypo-osmolality and hyponatremia Status: Acute (4) Acute hypokalemia: Code(s): E87.6 - Hypokalemia Status: Acute (5) Urinary tract infection: Qualifiers: Hematuria presence: without hematuria Urinary tract infection type: acute cystitis Qualified Code(s): N30.00 - Acute cystitis without hematuria Code(s): N39.0 - Urinary tract infection, site not specified Status: Acute (6) Tobacco abuse: Code(s): Z72.0 - Tobacco use Status: Acute (7) HTN (hypertension): Code(s): I10 - Essential (primary) hypertension Status: Acute (8) HLD (hyperlipidemia): Code(s): E78.5 - Hyperlipidemia, unspecified Status: Acute Plan Assessment and plan (1) Hyponatremia: ?Code(s): E87.1 - Hypo-osmolality and hyponatremia ?Status:?Acute ?Assessment and Plan: continue IVF gentle hydration (2) Acute renal failure: ?Qualifiers: ?Acute renal failure type:?unspecified? Qualified Code(s):?N17.9 - Acute kidney failure, unspecified ?Code(s): N17.9 - Acute kidney failure, unspecified ?Status:?Acute ?Assessment and Plan: continue fluids avoid nephrotoxic medication (3) Urinary tract infection: ?Qualifiers: ?Hematuria presence:?without hematuria??Urinary tract infection type:?acute cystitis? Qualified Code(s):?N30.00 - Acute cystitis without hematuria ?Code(s): N39.0 - Urinary tract infection, site not specified ?Status:?Acute ?Assessment and Plan: Rocephin for uti and colitis w flagyl (4) Tobacco abuse: ?Code(s): Z72.0 - Tobacco use ?Status:?Acute ?Assessment and Plan: 1/2 pack a day patient declines nicotine patches states she does not need one (5) HTN (hypertension): ?Code(s): I10 - Essential (primary) hypertension ?Status:?Acute ?Assessment and Plan: Hold bp medication hypotensive (6) HLD (hyperlipidemia): ?Code(s): E78.5 - Hyperlipidemia, unspecified ?Status:?Acute ?Assessment and Plan: cotninue home medication stable (7) Acute hypokalemia: ?Code(s): E87.6 - Hypokalemia ?Status:?Acute ?Assessment and Plan: Eladio gonzalez given 3.2 today oral potassium DS: Summary Hospital Course Hospital Course: This is a 67 year old female with a PMH of HTN and HLD. She presented to [facility] ED on 05/24 with complaints of diarrhea and dizziness. In the ER she was found to have low blood pressures, electrolyte derangements, JEROMY with dehydration, concerns for UTI, and CT imaging concerning for colitis. She was admitted to the medical floor and started on IV antibiotics. Interval history, 05/25-Marisel looks well today. She is laying in bed and says that her diarrhea has stopped. She denies abdominal pain, nausea, or vomiting. She has had breakfast this morning and tolerated it well. I was wanting to keep her for one more day for IV fluid hydration given her blood pressures continue to be on the lower side of normal. The patient is really wanting to discharge today as she does not think she is going to have a ride home tomorrow. She says that she feels well enough to go today and she is not having dizziness with position changes or ambulation. I have agreed to d/c her today after a liter bolus of LR with the agreement that she will drinking plenty of oral fluids and will continue to hold her blood pressure medications until she follows up with per PCP next week. Bill
[2023-05-25 09:28] LABS: Magnesium 1.4 mg/dL (1.8-2.4)
[2023-05-25] MEDS: POTASSIUM CHLORIDE 20 MEQ ER TABLET PO (11:06)
[2023-05-25] MEDS: LACTATED RINGERS 1,000 ML 999 ML IV CONT (11:07)
--- NOTE | 2023-05-25 12:50 | PC.NURSE ---
Patient discharging home. All discharge instructions and education reviewed with patient. Patient states understanding. IV site discontinued, dressing applied to site. All belongings gathered and sent home with patient. Denies any questions at discharge. This nurse accompanied patient to front door via wheelchair. Left via private vehicle with .
--- NOTE | 2023-05-29 13:23 | PC.NURSE ---
Call back for discharge attempted, no answer
--- NOTE | 2023-05-29 13:24 | PC.NURSE ---
discharge call back attempted, no answer
--- NOTE | 2023-05-31 08:39 | PC.NURSE ---
discharge call back completed, doing well, did receive discharge instructions and understood them, care was good
== END 2023-05-25 12:50 | disposition home or self-care (01) | DRG 392 ==
LOC: CHSED 11:42 → CHS2ND 11:48
PROVIDERS: Nurse Practitioner Acute Care; Nurse Practitioner Family; Admitting Provider Internal Medicine; Emergency Provider Internal Medicine Critical Care Medicine; PCP Internal Medicine; Visit Provider Internal Medicine
DX: K52.9 Noninfective gastroenteritis and colitis, unspecified (principal); N17.9 Acute kidney failure, unspecified; E87.1 Hypo-osmolality and hyponatremia; N39.0 Urinary tract infection, site not specified; I10 Essential (primary) hypertension; E78.5 Hyperlipidemia, unspecified; E87.6 Hypokalemia; R94.31 Abnormal electrocardiogram [ECG] [EKG]; M19.072 Primary osteoarthritis, left ankle and foot; F17.210 Nicotine dependence, cigarettes, uncomplicated
CPT/HCPCS: 36415; 71045; 74176; 76705; 80048; 80053; 81001; 83605; 83690; 83735; 84484; 85025; 85027; 87040; 87324; 87637; 93005; 96361; 96365; 96366; 96367; 96368; 99285; A9270; G0378; J0696; J1650; J1836; J3480; J7030; J7120

== ENCOUNTER 2023-06-04 13:46 | Outpatient (CLI) | payer MEDICARE, SELFPAY ==
[2023-06-04 14:04] LABS: Basophils Absolute Auto 0.02 K/mm3 (0.00-0.10); Basophils Percent Auto 0.3 % (0.0-1.0); Eosinophils Absolute Auto 0.07 K/mm3 (0.02-0.50); Eosinophils Percent Auto 1.1 % (1.0-6.0); Hematocrit 38.1 % (35.0-42.0); Hemoglobin 12.8 g/dL (11.7-13.8); Immature Granulocyte Absolute 0.02 K/mm3 (0.00-0.00); Immature Granulocyte Percent A 0.3 % (0.0-0.0); Lymphocytes Absolute Auto 1.95 K/mm3 (1.10-4.50); Lymphocytes Percent Auto 31.1 % (18.0-42.0); Mean Corpuscular HGB Conc 33.6 g/dL (32.0-36.0); Mean Corpuscular Hemoglobin 35.1 pg (27.0-31.0); Mean Corpuscular Volume 104.4 fL (78.0-102.0); Mean Platelet Volume 8.2 fl (9.2-11.8); Monocytes Absolute Auto 0.53 K/mm3 (0.10-0.90); Monocytes Percent Auto 8.4 % (2.0-11.0); Neutrophils Absolute Auto 3.7 K/mm3 (1.7-7.2); Neutrophils Percent Auto 58.8 % (50.0-70.0); Platelet Count Result 267 K/mm3 (150-420); Red Blood Count 3.65 M/mm3 (4.20-5.40); White Blood Count 6.3 K/mm3 (4.8-10.8)
[2023-06-04 14:08] LABS: Appearance Urine Clear (Clear); Bilirubin Urine Negative (Negative); Blood Urine 1+ (Negative); Color Urine Light Yellow (Yellow); Glucose Urine UA Negative (Negative); Ketones Urine Negative (Negative); Leukocyte Esterase Ur Negative (Negative); Nitrate Urine Negative (Negative); Protein Urine Negative (Negative); Specific Grav Ur <= 1.005 (1.010-1.020); Urobilinogen Urine 0.2 mg/dL (0.2-1.0)
[2023-06-04 14:13] LABS: Add Urine Microscopic? YES; RBC Urine 0-2 /hpf (0-2); WBC Urine None seen /hpf (0-3)
[2023-06-04 14:14] LABS: Bacteria Urine Rare /hpf; Squamous Epithelial Cell Urine Moderate /hpf (Few)
[2023-06-04 14:32] LABS: Alanine Aminotransferase 28 U/L (14-59); Albumin Level 3.1 g/dL (3.4-5.0); Alkaline Phosphatase 91 U/L (46-116); Anion Gap 8 mmol/L (8-16); Aspartate Amino Transferase 15 U/L (15-37); Bilirubin,Total 0.3 mg/dL (0.00-1.00); Blood Urea Nitrogen 9 mg/dL (7-18); Calcium 9.2 mg/dL (8.5-10.1); Carbon Dioxide 30 mmol/L (21-32); Chloride 105 mmol/L (98-108); Estimated Glomerular Filt Rate > 60; Glucose 92 mg/dL (70-99); Osmolality Calculated 294 mOsm/kg (285-295); Sodium 143 mmol/L (136-145); Total Protein 6.3 g/dL (6.4-8.2)
[2023-06-04 14:43] LABS: CRP < 0.5 mg/dL (0.0-0.9)
[2023-06-04 14:58] LABS: Erythrocyte Sedimentation Rate 36 mm/hr (0-20)
[2023-06-09 22:35] LABS: ANCA Screen Negative (Negative); Myeloperoxidase Ab <1.0 AI (<1.0); Proteinase-3 Ab <1.0 AI (<1.0); S cerevisiae Ab (IgA) 6.9 U (<=20.0); S cerevisiae Ab (IgG) 7.7 U (<=20.0)
== END 2023-06-04 13:47 | disposition home or self-care (01) ==
LOC: CHSLAB 13:48
PROVIDERS: PCP Internal Medicine; Visit Provider Internal Medicine
DX: K81.9 Cholecystitis, unspecified (principal); K57.92 Diverticulitis of intestine, part unspecified, without perforation or abscess without bleeding; K85.90 Acute pancreatitis without necrosis or infection, unspecified
CPT/HCPCS: 36415; 80053; 81001; 85025; 85652; 86036; 86140; 86671

== ENCOUNTER 2023-06-05 09:53 | Outpatient (CLI) | payer MEDICARE, OTHER, SELFPAY ==
[2023-06-11 18:48] LABS: Calprotectin, Stool 71 mcg/g
== END 2023-06-05 09:54 | disposition home or self-care (01) ==
LOC: CHSLAB 09:55
PROVIDERS: PCP Internal Medicine; Visit Provider Internal Medicine
DX: K81.9 Cholecystitis, unspecified (principal); K57.92 Diverticulitis of intestine, part unspecified, without perforation or abscess without bleeding; K85.90 Acute pancreatitis without necrosis or infection, unspecified
CPT/HCPCS: 83993

== ENCOUNTER 2023-06-07 09:20 | Outpatient (CLI) | payer MEDICARE, OTHER, SELFPAY ==
[2023-06-07 09:34] VITALS: BMI 22.5
[2023-06-07 09:35] VITALS: BP 130/56; PULSE 78; RESP 14; TEMP 36.6; O2SAT 98
[2023-06-07] MEDS: ZOLEDRONIC ACID 5 MG/100 ML 100 ML 400 MG IVPB (09:35)
--- NOTE | 2023-06-07 09:50 | PC.NURSE ---
Patient here for IV Reclast. Education given. All concerns answered. IV Reclast administered. SEE MAR. Tolerated well. Safe exit of hospital per self/ambulatory.
== END 2023-06-07 09:21 ==
LOC: CHSTREATRM 09:23
PROVIDERS: PCP Internal Medicine; Visit Provider Internal Medicine
DX: M81.0 Age-related osteoporosis without current pathological fracture (principal)
CPT/HCPCS: 96374; J3489

== ENCOUNTER 2023-06-11 12:18 | Outpatient (CLI) | payer MEDICARE, OTHER, SELFPAY | END 2023-06-11 12:19 | disposition home or self-care (01) | PROVIDERS: PCP Internal Medicine; Visit Provider Internal Medicine | DX: K81.1 Chronic cholecystitis (principal) | CPT/HCPCS: 99199 ==

== ENCOUNTER 2023-06-25 11:48 | Outpatient (CLI) | payer MEDICARE, OTHER, SELFPAY ==
--- NOTE | ~2023-06-25 | NM_ITS ---
HEPATOBILIARY SCAN Procedure: Hepatobiliary scan performed following IV administration 5 mCi Tc 99m Choletec. At 60 min utes 1.2 mcg CCK administered IV for evaluation of gallbladder ejection fraction. Indication:Chronic cholecystitis Comparison: Ultrasound dated 05/23/2023 Findings: There is normal radiotracer uptake in the liver parenchyma with prompt excretion into the b iliary tract. Gallbladder visualized at 10-15 minutes. Small bowel visualized at 60 minutes. Scarlet l gallbladder ejection fraction measures 37% (normal 10-90%, but most patients with gallbladder dysfu nction have GBEF of less than 35%) Impression: 1: Normal hepatobiliary scan. Reviewed, dictated and finalized at location B. EF DRILLER Impression: 1: Normal hepatobiliary scan.
== END 2023-06-25 11:49 | disposition home or self-care (01) ==
LOC: CHSIMG 11:50
PROVIDERS: PCP Internal Medicine; Visit Provider Internal Medicine
DX: K81.9 Cholecystitis, unspecified (principal)
CPT/HCPCS: 78227; A9537; J2805

== ENCOUNTER 2023-07-05 00:56 | Day surgery (SDC) | payer MEDICARE, OTHER, SELFPAY ==
[2023-06-20 13:21] VITALS: BMI 24.0
--- NOTE | 2023-07-03 12:48 | SUR.PREOP ---
Patient called regarding upcoming procedure. Reviewed preop instructions, appointment times, and procedure prep.
[2023-07-05 06:40] VITALS: BP 125/61; PULSE 74; RESP 16; TEMP 35.9; O2SAT 100; BMI 23.3
[2023-07-05] MEDS: LACTATED RINGERS 1,000 ML 150 ML IV CONT (07:02)
--- NOTE | 2023-07-05 07:55 | PM.IMHP ---
H&P: HPI History of Present Illness Date/Time: 07/05/23 07:55 Chief Complaint: History of colon polyps Narrative: This is a 67-year-old woman who presents for colonoscopy. Her last colonoscopy was about 5 years ago. She states that a polyp was removed at that time. She denies any hematochezia or melena. She has had occasional problems with hemorrhoid bleeding but nothing recently. She denies any family history of colon cancer. Review of Systems Review of Systems: All systems reviewed & are unremarkable except as noted in HPI and below Constitutional: Constitutional: Denies chills, Denies fever(s), Denies headache(s) and Denies weight loss Eyes: Eyes: Denies change in vision ENT: Denies dizziness, Denies headache(s), Denies neck mass and Denies throat swelling Cardiovascular: Cardiovascular: Denies chest pain, Denies lightheadedness and Denies dyspnea Respiratory: Respiratory: Denies cough, Denies dyspnea and Denies wheezing Gastrointestinal: Gastrointestinal: Denies abdominal pain, Denies change in bowel habits, Denies nausea and Denies vomiting Genitourinary: Genitourinary: Denies hematuria and Denies dysuria Musculoskeletal: Musculoskeletal: Reports as per HPI Integumentary/Breasts: Skin/Breast: Reports as per HPI Neurologic: Denies dizziness and Denies headache(s) Allergic/Immunologic: Allergic/Immunologic: Denies throat swelling and Denies wheezing PMF Past Medical History Medical History Achilles tendinitis of left lower extremity Arthritis of foot, left, degenerative Cystocele Posterior calcaneal exostosis Vaginal delivery x2 Surgical History Surgical History H/O of anterior colporrhaphy 2010 History of hysterectomy 03/27/16 Family History Family History Father Acute myocardial infarction, Onset Age: 82 Patient's father is Mother Patient's mother is Social History Social History Smoking packs per day: 0.75 Smoking cigarettes per day: 15.0 Years smoked: 40 Smoking pack-years: 30.00 Smoking status: Current every day smoker Tobacco type: cigarettes Second hand tobacco smoke exposure: No Alcohol intake: never Drinks per week: 6 Substance use: never Substance use type: does not use Lack of Transportation: No Lack of Food: Never True Current Housing: I Have Housing Concerned About Future Housing: No Difficulty Paying Gas/Electric Bills: No Difficulty Paying for Meds: No Currently Unemployed: No Education: High School Diploma/GED Difficulty w/ Childcare or Family Care: No Living arrangements: with family Occupation/Education: retired Gender identity (if verbalized by the patient): Female Sexual Orientation (if Verbalized by the Patient): Straight or Heterosexual Spiritual care concerns: No Agree to blood products: Yes Meds Home Medications and Allergies Home Medications Medication Instructions Recorded Confirmed Type atorvastatin 40 mg tablet 40 mg PO DAILY 03/08/20 07/05/23 History cyanocobalamin (vitamin B-12) 2,000 mcg PO DAILY 05/10/21 07/05/23 History 1,000 mcg tablet ergocalciferol (vitamin D2) 400 400 unit PO DAILY 05/10/21 07/05/23 History unit capsule potassium chloride 20 mEq 40 meq PO DAILY 10 days #20 tabs 05/12/21 07/05/23 Rx tablet,extended release(part/cryst) (Klor-Con M) cranberry extract 425 mg capsule 425 mg PO DAILY 03/15/22 07/05/23 History losartan 100 mg tablet 100 mg PO DAILY 03/15/22 07/05/23 History Lactobacillus 1 cap PO DAILY 06/20/23 07/05/23 History acidophilus-Bifidobac.animalis 2.5 billion cell capsule (Daily Probiotic) Allergies Allergy/AdvReac Type Severity Reaction Status Date / Time No Known
--- NOTE | 2023-07-05 07:55 | WPDANESEPPF ---
Anes - Initial Pre Proc Eval Procedure: Operation Date: 07/05/23 08:00 Proposed Procedures p Screening Colonoscopy - Clay An DO Date/Time: 07/05/23 07:55 Surgeon: Clay An DO Pre Op Diagnosis: hx colon polyps Patient Data Age: 67 Gender: F Height: 1.6 m Weight: 59.6 kg Last Vital Signs Temp 96.7 F L 07/05/23 06:40 Pulse 74 07/05/23 06:40 Resp 16 07/05/23 06:40 BP 125/61 07/05/23 06:40 Pulse Ox 100 07/05/23 06:40 O2 Del Method Room Air 07/05/23 06:40 Allergies Allergy/AdvReac Type Severity Reaction Status Date / Time No Known Allergies Allergy Verified 07/05/23 06:51 Home Medications Medication Instructions Recorded Confirmed Type atorvastatin 40 mg tablet 40 mg PO DAILY 03/08/20 07/05/23 History cyanocobalamin (vitamin B-12) 2,000 mcg PO DAILY 05/10/21 07/05/23 History 1,000 mcg tablet ergocalciferol (vitamin D2) 400 400 unit PO DAILY 05/10/21 07/05/23 History unit capsule potassium chloride 20 mEq 40 meq PO DAILY 10 days #20 tabs 05/12/21 07/05/23 Rx tablet,extended release(part/cryst) (Klor-Con M) cranberry extract 425 mg capsule 425 mg PO DAILY 03/15/22 07/05/23 History losartan 100 mg tablet 100 mg PO DAILY 03/15/22 07/05/23 History Lactobacillus 1 cap PO DAILY 06/20/23 07/05/23 History acidophilus-Bifidobac.animalis 2.5 billion cell capsule (Daily Probiotic) Patient hx anesthesia problems: none Family hx anesthesia problems: none Results Review: All pre-operative results and documents have been reviewed as part of the pre-operative evaluation. [facility] Past Medical History Medical History Achilles tendinitis of left lower extremity Arthritis of foot, left, degenerative Cystocele Posterior calcaneal exostosis Vaginal delivery x2 Surgical History Surgical History H/O of anterior colporrhaphy 2010 History of hysterectomy 03/27/16 Family History Family History Father Acute myocardial infarction, Onset Age: 82 Patient's father is Mother Patient's mother is Social History Social History Smoking packs per day: 0.75 Smoking cigarettes per day: 15.0 Years smoked: 40 Smoking pack-years: 30.00 Smoking status: Current every day smoker Tobacco type: cigarettes Second hand tobacco smoke exposure: No Alcohol intake: never Drinks per week: 6 Substance use: never Substance use type: does not use Lack of Transportation: No Lack of Food: Never True Current Housing: I Have Housing Concerned About Future Housing: No Difficulty Paying Gas/Electric Bills: No Difficulty Paying for Meds: No Currently Unemployed: No Education: High School Diploma/GED Difficulty w/ Childcare or Family Care: No Living arrangements: with family Occupation/Education: retired Gender identity (if verbalized by the patient): Female Sexual Orientation (if Verbalized by the Patient): Straight or Heterosexual Spiritual care concerns: No Agree to blood products: Yes Anes - Eval Final PreProcedure Day of Procedure 07/05/23 07:55 Patient weight: normal Heart: regular rate and rhythm Lungs: clear to auscultation Airway: Mallampati scale class II Neurological: alert and oriented Last oral intake: >/= 8 hours ASA classification: II Emergent: no Anesthetic plan: proceed Anesthesia type and monitoring: general GIVS and standard monitoring Results Review: All pre-operative results and documents have been reviewed as part of the pre-operative evaluation. Informed Consent: The patient's anesthetic plan and its attendant risks and benefits were discussed with the patient/family/POA. Questions were solicited and answers provided
[2023-07-05 08:30] VITALS: BP 121/60; PULSE 58; RESP 19; O2SAT 99
[2023-07-05 08:40] VITALS: BP 145/72; PULSE 59; RESP 24; O2SAT 100
[2023-07-05 08:50] VITALS: BP 141/63; PULSE 56; RESP 21; O2SAT 100
== END 2023-07-05 09:04 | disposition home or self-care (01) ==
PROVIDERS: PCP Internal Medicine; Visit Provider Surgery
PROC: 0DJD8ZZ Inspection of Lower Intestinal Tract, Via Natural or Artificial Opening Endoscopic (ICD-10-PCS; CPT 45378; principal; 2023-07-05 08:00)
DX: Z12.11 Encounter for screening for malignant neoplasm of colon (principal); D12.5 Benign neoplasm of sigmoid colon; K57.30 Diverticulosis of large intestine without perforation or abscess without bleeding; K64.8 Other hemorrhoids; F17.210 Nicotine dependence, cigarettes, uncomplicated
CPT/HCPCS: 45385; 88305; J2704; J7120

== ENCOUNTER 2023-11-15 08:16 | Outpatient (CLI) | payer MEDICARE, OTHER, SELFPAY ==
--- NOTE | ~2023-11-15 | DEXA_ITS ---
? Bone Density Report? Name:? BERKLEY DOMINGO A Patient ID:??? [id number] Age:? 68 Sex:? Female Ethnicity:? White Date of : 1955 Indication: postmenopausal; screening for osteoporosis; height loss; hysterectomy; Referring Provider: Marvel Carbone Study: Bone densitometry was performed. Exam Date: November 15, 2023 Accession number: [id number] Bone Density: Region? BMD??? T-score? Z-score?? Classification AP Spine(L1-L4)? 0.961?? -0.8?1.1? Normal Femoral Neck (Left)? 0.528?? -2.9? -1.3? Osteoporosis Total Hip (Left)? 0.749?? -1.6? -0.2? Osteopenia Femoral Neck (Right)? 0.656?? -1.7? -0.1? Osteopenia Total Hip (Right)? 0.780?? -1.3? 0.0? Osteopenia Femoral Neck Mean? 0.592?? -2.3? -0.7? Osteopenia Total Hip Mean? 0.764?? -1.5? -0.1? Osteopenia World Health Organization criteria for BMD impression classify patients as: Normal (T-score at or above -1.0), Osteopenia (T-score between -1.0 and -2.5), or Osteoporosis (T-score at or below -2.5). 10-year Fracture Risk: FRAX not reported because: ? Some T-score for Spine Total or Hip Total or Femoral Neck at or below -2.5 ? Treated for osteoporosis Clinical Information Provided by Patient: Smokes Is being treated for osteoporosis Has used the following medications: Vitamin D, Calcium, yearly IV tx for osteoporosis Has the following medical conditions: Hysterectomy Patient maximum height was 67 Menopause Age: 51 No regular weight bearing exercise Onset of menses at age 15 Number of children 2 Impression: The patient has osteoporosis, based on the Left Femoral Neck T- score. The patient has risk factors, including: smoking. Discussion: It is important to ask patients whether they are taking their medications and to encourage continued and appropriate compliance with their osteoporosis therapies to reduce fracture risk. It is also important to review their risk factors and encourage appropriate calcium and vitamin D intakes, exercise, fall prevention and other lifestyle measures. Follow-Up: Consider a repeat BMD and Vertebral Fracture Assessment (VFA) exam in 2 years or sooner if medically necessary, to reassess this patient's status. Reported by: Dr. Cory Torres on 11/15/2023 8:51:00 AM. FOX
== END 2023-11-15 08:17 | disposition home or self-care (01) ==
LOC: CHSIMG 08:18
PROVIDERS: PCP Internal Medicine; Visit Provider Internal Medicine
DX: Z78.0 Asymptomatic menopausal state (principal); M85.89 Other specified disorders of bone density and structure, multiple sites; M81.0 Age-related osteoporosis without current pathological fracture
CPT/HCPCS: 77080

== ENCOUNTER 2024-07-08 10:52 | Outpatient (CLI) | payer MEDICARE, OTHER, SELFPAY ==
[2024-07-08 11:15] VITALS: BP 127/66; PULSE 86; RESP 18; TEMP 36.4; O2SAT 98
[2024-07-08] MEDS: ZOLEDRONIC ACID 5 MG/100 ML 100 ML 400 MG IVPB (11:20)
[2024-07-08 11:54] VITALS: BMI 24.1
--- NOTE | 2024-07-08 12:02 | PC.NURSE ---
Pt tolerates Reclast well, able to exit facility via self.
== END 2024-07-08 10:53 | disposition home or self-care (01) ==
PROVIDERS: PCP Internal Medicine; Visit Provider Internal Medicine
DX: M81.0 Age-related osteoporosis without current pathological fracture (principal)
CPT/HCPCS: 96365; 96374; J3489

== ENCOUNTER 2024-11-17 08:57 | Outpatient (CLI) | payer MEDICARE, OTHER, SELFPAY ==
--- NOTE | ~2024-11-17 | DEXA_ITS ---
Bone Density Report Name: BERKLEY DOMINGO Age: 69 Sex: Female Ethnicity: White Date of : 1955 Indication: osteopenia; monitoring treatment; height loss; Referring Provider: Marvel Carbone Study: Bone densitometry was performed. Exam Date: November 17, 2024 Accession number: [id number] Bone Density: Region BMD T-score Z-score Classification AP Spine(L1, L2, L3) 1.069 0.5 2.4 Normal Femoral Neck (Left) 0.530 -2.9 -1.2 Osteoporosis Total Hip (Left) 0.761 -1.5 -0.1 Osteopenia Femoral Neck (Right) 0.743 -1.0 0.7 Normal Total Hip (Right) 0.807 -1.1 0.3 Osteopenia Femoral Neck Mean 0.637 -1.9 -0.2 Osteopenia Total Hip Mean 0.784 -1.3 0.1 Osteopenia World Health Organization criteria for BMD impression classify patients as: Normal (T-score at or above -1.0), Osteopenia (T-score between -1.0 and -2.5), or Osteoporosis (T-score at or below -2.5). 10-year Fracture Risk: FRAX not reported because: Some T-score for Spine Total or Hip Total or Femoral Neck at or below -2.5 Treated for osteoporosis Previous Exams: Region Exam Age BMD T-score BMD Change BMD Change Date g/cm2 vs Baseline vs Previous AP Spine (L1-L3) 11/17/2024 69 1.069 0.5 -0.070 (-6.1%) 0.053 (5.2%)* 11/15/2023 68 1.016 0.0 -0.123 (-10.8% 0.005 (0.5%) 03/16/2021 65 1.011 -0.1 -0.128 (-11.3% -0.088 (-8.0%) 12/21/2017 62 1.100 0.7 -0.040 (-3.5%) 0.062 (6.0%)* 10/23/2014 59 1.037 0.2 -0.102 (-9.0%) -0.102 (-9.0%) 12/03/2009 54 1.139 1.1 Total Hip(Left) 11/17/2024 69 0.761 -1.5 -0.139 (-15.5% 0.012 (1.6%) 11/15/2023 68 0.749 -1.6 -0.151 (-16.8% -0.066 (-8.0%) 03/16/2021 65 0.814 -1.0 -0.086 (-9.5%) 0.045 (5.8%)# 12/21/2017 62 0.770 -1.4 -0.130 (-14.5% -0.054 (-6.5%) 10/23/2014 59 0.823 -1.0 -0.076 (-8.5%) -0.076 (-8.5%) 12/03/2009 54 0.900 -0.3 Total Hip(Right) 11/17/2024 69 0.807 -1.1 -0.112 (-12.1% 0.027 (3.5%) 11/15/2023 68 0.780 -1.3 -0.139 (-15.1% -0.033 (-4.0%) 03/16/2021 65 0.813 -1.1 -0.106 (-11.5% -0.021 (-2.5%) 10/23/2014 59 0.834 -0.9 -0.085 (-9.3%) -0.085 (-9.3%) 12/03/2009 54 0.919 -0.2 *Denotes significance at 95% confidence level, LSC for AP Spine = 0.022 g/cm2, LSC for Total Hip = 0.027 g/cm2 # Denotes dissimilar scan types or analysis methods Clinical Information Provided by Patient: Smokes Is being treated for osteoporosis Has used the following medications: Vitamin D, Calcium Patient maximum height was 65 Menopause Age: 51 No regular weight bearing exercise Does not regularly consume dairy products Onset of menses at age 15 Number of children 2 Impression: The patient has osteoporosis, based on the Left Femoral Neck T-score. The patient has risk factors, including: smoking. No significant bone loss was observed. Discussion: PATIENT UNDER TREATMENT WITH NO SIGNIFICANT BMD LOSS SINCE LAST EXAM. In an untreated patient, BMD typically declines with age. A lack of decline or gain is usually a sign that treatment is efficacious and fracture risk is reduced. It is important to ask patients whether they are taking their medications and to encourage continued and appropriate compliance with their osteoporosis therapies to reduce fracture risk. It is also important to review their risk factors and encourage appropriate calcium and vitamin D intakes, exercise, fall prevention and other lifestyle measures. Follow-Up: Consider a repeat BMD and Vertebral Fracture Assessment (VFA) exam in 2 years or sooner if medically necessary, to reassess this patient's status. Reported by: FLETCHER on 11/17/2024 9:35:00 AM. Reviewed, dictated and finalized at location A.
== END 2024-11-17 08:58 | disposition home or self-care (01) ==
PROVIDERS: PCP Internal Medicine; Visit Provider Internal Medicine
DX: Z78.0 Asymptomatic menopausal state (principal); M85.89 Other specified disorders of bone density and structure, multiple sites; M81.0 Age-related osteoporosis without current pathological fracture
CPT/HCPCS: 77080

== ENCOUNTER 2024-12-09 12:29 | Outpatient (CLI) | payer MEDICARE, OTHER, SELFPAY ==
--- NOTE | ~2024-12-09 | US_ITS ---
EXAMINATION: US carotid duplex BI DATE: 12/09/2024 12:58 INDICATION: Follow-up carotid stenosis TECHNIQUE: Grayscale, color Doppler, and pulsed Doppler images of the cervical carotid arteries were obtained. The degree of vessel stenosis is placed in one of the following categories: normal, <50%, 5 0-69%, >=70% but less than near-occlusion, near-occlusion, or total occlusion. Note that percent sten osis relative to normal distal artery lumen diameter is indirectly measured from velocity measurement s as described by Luis Alfredo, et al. Radiology 2003; 229:340-346. Notes: Normal: Peak systolic velocity <125 centimeters/sec and no plaque <50%. Peak systolic velocity <125 ( EDV <40; ICA/CCA PSV ratio <2.0; used these factors only a tandem lesions or low cardiac output or co ntralateral disease) 50-69 %: PSV 125-230 (EDV 40-100; ratio 2-4) >= 70% but less than near occlusion: PSV greater than 230 (EDV > 100; ratio> 4.0) Near Occlusion: PSV that is variable; markedly narrowed lumen Occlusion: Absent flow on color/spectral Doppler and no lumen on espana scale. COMPARISON: Ultrasound dated 05/10/2023. FINDINGS: RIGHT: The right common carotid artery (CCA) peak systolic velocity (PSV) is 92 cm/s. The right internal car otid artery (ICA) PSV is 69 cm/s. The right ICA end-diastolic velocity (EDV) is 18 cm/s. The right IC A/CCA PSV ratio is 0.75. The external carotid artery (ECA) PSV is 100 cm/s. There is antegrade flow i n the right vertebral artery. LEFT: The left CCA PSV is 95 cm/s. The left ICA PSV is 109 cm/s. The left ICA EDV is 36 cm/s. The left ICA/ CCA PSV ratio is 1.1. The ECA PSV is 110 cm/s. There is antegrade flow in the left vertebral artery. IMPRESSION: 1. Less than 50% stenosis in the right internal carotid artery by sonographic criteria. 2. Less than 50% stenosis in the left internal carotid artery by sonographic criteria. Reviewed, dictated and finalized at location A. IMPRESSION: 1. Less than 50% stenosis in the right internal carotid artery by sonographic c fransisco. 2. Less than 50% stenosis in the left internal carotid artery by sonographic danny clark.
== END 2024-12-09 12:30 | disposition home or self-care (01) ==
LOC: CHSIMG 12:31
PROVIDERS: PCP Internal Medicine; Visit Provider Internal Medicine
DX: I65.23 Occlusion and stenosis of bilateral carotid arteries (principal)
CPT/HCPCS: 93880

== ENCOUNTER 2024-12-11 10:34 | Outpatient (CLI) | payer MEDICARE, OTHER, SELFPAY ==
--- NOTE | ~2024-12-11 | MR_ITS ---
EXAMINATION: MR brain/brain stem wo/w con DATE: 12/11/2024 11:27 INDICATION: Transient ischemic episode. 2 weeks of blurry vision. TECHNIQUE: Magnetic resonance imaging (MRI) of the brain and brainstem was performed without and with 14 mL Multihance intravenous contrast. Sequences included sagittal and axial T1-weighted SE, axial d iffusion-weighted FS SE, without and with 15 mL Multihance , axial T2-weighted FLAIR, and axial T2-we ighted FSE. Postcontrast axial and coronal T1-weighted SE was obtained. Apparent diffusion coefficien t (ADC) maps were created. COMPARISON: None. FINDINGS: There is a small region of restricted diffusion with increased fluid signal in the peritrigonal white matter at the junction of the right temporal and frontal lobes and the posterior insula consistent w ith acute infarct. There is a second small acute infarct with restricted diffusion in the right cereb ellar hemisphere. Chronic small old lacunar infarct in the right frontal lobe arita radiata. No intr acranial hemorrhage or abnormal intracranial mass lesion. There are scattered areas of nonspecific in creased T2-weighted signal intensity in the cerebral white matter, predominantly involving the deep a nd periventricular white matter. There are no intraparenchymal signal abnormalities seen on the other pulse sequences. The ventricles are symmetric and normal in size. There are no abnormal extra-axial fluid collections. Flow voids are seen in the cerebral arteries on the T2-weighted sequences consiste nt with their expected patency. Moderate mucosal thickening the left maxillary sinus with mild focal thickening in the bilateral ethmoid sinuses. Visualized orbits and soft tissues are unremarkable. The re are no areas of abnormal enhancement on the post contrast images. IMPRESSION: 1. Small acute infarcts in the right peritrigonal white matter and at the right cerebellar hemisphere . 2. Scattered ossific white matter T2 hyperintensity consistent with chronic small vessel ischemic dis ease with additional small old lacunar infarct in the right frontal lobe arita radiata. Reviewed, dictated and finalized at location A. IMPRESSION: 1. Small acute infarcts in the right peritrigonal white matter and at the right cerebellar hemisphere. 2. Scattered ossific white matter T2 hyperintensity consistent with chronic sma ll vessel ischemic disease with additional small old lacunar infarct in the rig ht frontal lobe arita radiata.
== END 2024-12-11 10:35 | disposition home or self-care (01) ==
LOC: CHSIMG 10:36
PROVIDERS: PCP Internal Medicine; Visit Provider Internal Medicine
DX: G45.9 Transient cerebral ischemic attack, unspecified (principal)
CPT/HCPCS: 70553; A9577

== ENCOUNTER 2024-12-11 11:24 | Emergency (ER) | payer MEDICARE, OTHER, SELFPAY ==
[2024-12-11] VITALS (12 sets, daily range): BP systolic 132–162; BP diastolic 66–79; PULSE 64–79; RESP 13–23; TEMP 36.3; O2SAT 94–97
--- NOTE | 2024-12-11 11:41 | ECG_ITS ---
Test Date: 2024-12-11 11:54:44 Measurements Intervals [place] Rate: 71 P: 11 TX: 140 QRS: 39 QRSD: 90 T: 10 QT: 386 QTc: 419 Interpretive Statements SINUS RHYTHM POSSIBLE INFERIOR MYOCARDIAL INFARCTION , PROBABLY OLD [30 ms Q WAVE IN II/aVF] No previous ECG available for comparison Electronically Signed On 12-12-2024 12:01:03 CDT by Seamus Reed M.D.
[2024-12-11 11:53] LABS: Basophils Absolute Auto 0.02 K/mm3 (0.00-0.10); Basophils Percent Auto 0.3 % (0.0-1.0); Eosinophils Absolute Auto 0.08 K/mm3 (0.02-0.50); Eosinophils Percent Auto 1.1 % (1.0-6.0); Hematocrit 43.8 % (35.0-42.0); Hemoglobin 14.6 g/dL (11.7-13.8); Immature Granulocyte Absolute 0.01 K/mm3 (0.00-0.00); Immature Granulocyte Percent A 0.1 % (0.0-0.0); Lymphocytes Absolute Auto 2.27 K/mm3 (1.10-4.50); Lymphocytes Percent Auto 31.6 % (18.0-42.0); Mean Corpuscular HGB Conc 33.3 g/dL (32-36); Mean Corpuscular Hemoglobin 33.3 pg (27.0-31.0); Mean Corpuscular Volume 99.8 fL (78.0-102.0); Mean Platelet Volume 8.4 fl (9.2-11.8); Monocytes Absolute Auto 0.56 K/mm3 (0.10-0.90); Monocytes Percent Auto 7.8 % (2.0-11.0); Neutrophils Absolute Auto 4.24 K/mm3 (1.70-7.20); Neutrophils Percent Auto 59.1 % (50.0-70.0); Platelet Count Result 214 K/mm3 (150-420); Red Blood Count 4.39 M/mm3 (4.20-5.40); Red Cell Distribution Width 12.6 % (11.6-14.4); White Blood Count 7.2 K/mm3 (4.8-10.8)
[2024-12-11 12:09] LABS: INR 0.9; Partial Thromboplastin Time 29.3 Sec (23.9-30.70); Prothrombin Time 10.4 Seconds (9.50-12.1)
[2024-12-11 12:11] LABS: Alanine Aminotransferase 25 U/L (14-59); Albumin Level 3.9 g/dL (3.4-5.0); Alkaline Phosphatase 66 U/L (46-116); Anion Gap 7 mmol/L (4-12); Aspartate Amino Transferase < 10 U/L (15-37); Bilirubin,Total 0.4 mg/dL (0.00-1.00); Blood Urea Nitrogen 14 mg/dL (7-18); Calcium 9.4 mg/dL (8.5-10.1); Carbon Dioxide 29 mmol/L (21-32); Chloride 101 mmol/L (98-108); Estimated CRCL calculation 57 ml/min; Estimated Glomerular Filt Rate > 60; Glucose 97 mg/dL (70-99); Osmolality Calculated 284 mOsm/kg (285-295); Potassium 4.1 mmol/L (3.5-5.1); Sodium 137 mmol/L (136-145); Total Protein 7.2 g/dL (6.4-8.2)
--- NOTE | 2024-12-11 12:48 | ED_ITS ---
HPI - Eye Problem General Chief complaint: Eye Problems Stated complaint: abnormal imaging Time Seen by Provider: 12/11/24 11:33 Source: patient Mode of arrival: ambulatory Limitations: no limitations History of Present Illness HPI Narrative: this is a 69-year-old female with some history of hypertension hyperlipidemia and tobacco abuse developed blurry vision approximately 1 week ago and had workup done by her primary care physician which included a carotid Doppler ultrasound which shows less than 50% stenosis bilaterally, MRI performed on an outpatient basis showed acute infarcts and was sent to the emergency department for further workup. Patient is neurologically intact with no neurological deficits no slurred speech no weakness in arms or legs no motor weakness but continues to have some blurry vision right greater than left. There is no nausea vomiting no chest pain no shortness of breath no dysuria no hematuria no fever chills. chief complaint: vision change Onset (ago): day(s) Onset description: sudden Duration: constant Location: both eyes Related Data Home Medications ?Medication ?Instructions ?Recorded ?Confirmed ?Last Taken ?Type atorvastatin 40 mg tablet 40 mg PO DAILY 03/08/20 07/08/24 07/07/24 History cyanocobalamin (vitamin B-12) 2,000 mcg PO DAILY 05/10/21 07/08/24 07/07/24 History 1,000 mcg tablet ergocalciferol (vitamin D2) 400 400 unit PO DAILY 05/10/21 07/08/24 07/07/24 History unit capsule cranberry extract 425 mg capsule 425 mg PO DAILY 03/15/22 07/08/24 07/07/24 History losartan 100 mg tablet 100 mg PO DAILY 03/15/22 07/08/24 07/07/24 History Lactobacillus 1 cap PO DAILY 06/20/23 07/08/24 07/07/24 History acidophilus-Bifidobac.animalis 2.5 billion cell capsule (Daily Probiotic) Allergies Allergy/AdvReac Type Severity Reaction Status Date / Time No Known Allergies Allergy Verified 12/11/24 11:34 Review of Systems 2 Review of Systems: All systems reviewed & are unremarkable except as noted in HPI and below PMFSH Past Medical History Medical History Vaginal delivery x2 Arthritis of foot, left, degenerative Posterior calcaneal exostosis Achilles tendinitis of left lower extremity Cystocele Surgical History Surgical History H/O of anterior colporrhaphy 2010 History of hysterectomy 03/27/16 Family History Family History Father Acute myocardial infarction, Onset Age: 82 Patient's father is Mother Patient's mother is Social History Social History Smoking packs per day: 0.75 Smoking cigarettes per day: 15.0 Years smoked: 40 Smoking pack-years: 30.00 Smoking status: Current every day smoker Tobacco type: cigarettes Second hand tobacco smoke exposure: No Alcohol intake: never Drinks per week: 6 Substance use: never Substance use type: does not use Lack of Transportation: No Lack of Food: Never True Current Housing: I Have Housing Concerned About Future Housing: No Difficulty Paying Gas/Electric Bills: No Difficulty Paying for Meds: No Currently Unemployed: No Education: High School Diploma/GED Difficulty w/ Childcare or Family Care: No Living arrangements: with family Occupation/Education: retired Gender identity (if verbalized by the patient): Female Sexual Orientation (if Verbalized by the Patient): Straight or Heterosexual Spiritual care concerns: No Agree to blood products: Yes Exam 2 Const: General: healthy appearing and no acute distress Nutritional Appearance: well nourished Orientation/consciousness: patient oriented x3 Limitations: no limitations HENMT: Head: normal to inspection Eyes: Conjunctivae: conjunctivae normal and conjunctival abnormality P upils: Equal, round and reactive pupils present EOM: EOMs intact bilaterally Neck: Neck: normal visual inspection Chest: Chest palpation & inspection: normal inspection of the chest Resp: Effort & Inspection: normal respiratory effort Auscultation: clear to auscultation bilaterally Cardio: Rate: regular rate Rhythm: regular rhythm GI: Auscultation: normal bowel sounds Urinary Catheter: Urinary Catheter: patent and draining Back/Spine/Pelvis: Back: no CVA tenderness Skin: General skin exam: normal color Neuro: General: patient oriented x3, moves all extremities, no meningeal signs, no focal motor deficits and CN's II-XI intact bilaterally Cranial nerves: Yes Nystagmus not present Speech: normal speech Gait exam (Neuro): Normal gait present Extrem: General: normal to inspection Psych: Mental Status: mental status grossly normal Course Course Emergency Course: Patient had MRI performed and reviewed which showed small acute infarcts in the right peritrigonal white matter and the right cerebellar hemisphere. Patient had blood work performed which showed no acute abnormalities. I spoke to Neurology at [facility] system and agrees that patient can be treated on outpatient basis with follow-up with Neurology. Will start on aspirin along with Plavix and increase her atorvastatin to80mg daily. Vital Signs Vital signs: Vital Signs Temperature 36.3 C L 12/11/24 11:25 Pulse Rate 76 12/11/24 11:25 Respiratory Rate 16 12/11/24 11:25 Blood Pressure 149/79 H 12/11/24 11:25 Pulse Oximetry 96 12/11/24 11:25 Oxygen Delivery Room Air 12/11/24 11:25 Temperature 36.3 C L 12/11/24 11:25 Pulse Rate 73 12/11/24 12:00 Respiratory Rate 16 12/11/24 11:25 Blood Pressure 149/79 H 12/11/24 11:25 Pulse Oximetry 96 12/11/24 11:25 Oxygen Delivery Room Air 12/11/24 11:25 MDM - Eye Problem Lab Data 12/11/24 11:49 12/11/24 11:49 Labs: Lab Results 12/11/24 Range/Units 11:49 WBC 7.2 (4.8-10.8) K/mm3 RBC 4.39 (4.20-5.40) M/mm3 Hgb 14.6 H (11.7-13.8) g/dL Hct 43.8 H (35.0-42.0) % MCV 99.8 (78.0-102.0) fL MCH 33.3 H (27.0-31.0) pg MCHC 33.3 (32-36) g/dL RDW 12.6 (11.6-14.4) % Plt Count 214 (150-420) K/mm3 MPV 8.4 L (9.2-11.8) fl Immature Gran % (Auto) 0.1 H (0.0-0.0) % Neut % (Auto) 59.1 (50.0-70.0) % Lymph % (Auto) 31.6 (18.0-42.0) % Garland % (Auto) 7.8 (2.0-11.0) % Eos % (Auto) 1.1 (1.0-6.0) % Baso % (Auto) 0.3 (0.0-1.0) % Lymph # (Auto) 2.27 (1.10-4.50) K/mm3 Garland # (Auto) 0.56 (0.10-0.90) K/mm3 Eos # (Auto) 0.08 (0.02-0.50) K/mm3 Baso # (Auto) 0.02 (0.00-0.10) K/mm3 Abs Immat Gran (auto) 0.01 H (0.00-0.00) K/mm3 Absolute Neuts (auto) 4.24 (1.70-7.20) K/mm3 Absolute Nucleated RBC 0.00 (0.00-0.00) K/mm3 Nucleated RBC % 0.0 (0-0.0) % PT 10.4 (9.50-12.1) Seconds INR 0.9 APTT 29.3 (23.9-30.70) Sec Sodium 137 (136-145) mmol/L Potassium 4.1 (3.5-5.1) mmol/L Chloride 101 (98-108) mmol/L Carbon Dioxide 29 (21-32) mmol/L Anion Gap 7 (4-12) mmol/L BUN 14 (7-18) mg/dL Creatinine 0.73 (0.55-1.02) mg/dL Estim Creat Clear Calc 57 ml/min Estimated GFR > 60 (59 - ) Glucose 97 (70-99) mg/dL Calculated Osmolality 284 L (285-295) mOsm/kg Calcium 9.4 (8.5-10.1) mg/dL Total Bilirubin 0.4 (0.00-1.00) mg/dL AST < 10 L (15-37) U/L ALT 25 (14-59) U/L Alkaline Phosphatase 66 (46-116) U/L Total Protein 7.2 (6.4-8.2) g/dL Albumin 3.9 (3.4-5.0) g/dL Critical Care Time Critical Care Time Critical Care Time: No Discharge Plan Discharge Clinical Impression: Acute cerebrovascular accident (CVA), Tobacco abuse Patient Disposition: Home Condition: Stable Instructions: Antibiotic Form, Stroke (DC) Additional Instructions: advised patient to take medication as prescribed, take aspirin daily along with some prescribed Plavix, and increase atorvastatin to80mg daily. And follow-up with neurology as scheduled. Patient Language: Citizen Of [place] Prescriptions: New clopidogrel [Plavix] 75 mg tablet 75 mg PO DAILY Qty: 20 0RF No Action ergocalciferol (vitamin D2) 400 unit Capsule 400 unit PO DAILY Patient Comments: QAM cyanocobalamin (vitamin B-12) 1,000 mcg Tablet 2,000 mcg PO DAILY Patient Comments: QAM potassium chloride [Klor-Con M20] 20 mEq tablet,ER particles/crystals 40 meq PO DAILY 10 Days Qty: 20 0RF Patient Comments: QAM atorvastatin 40 mg tablet 40 mg PO DAILY Patient Comments: QAM cranberry extract 425 mg capsule 425 mg PO DAILY Patient Comments: QAM Rx Instructions: administer with a meal losartan 100 mg tablet 100 mg PO DAILY Patient Comments: QAM Daily Probiotic 2.5 billion cell Capsule 1 cap PO DAILY Follow-up/Referrals: Marvel Carbone MD [Primary Care Provider] -
[2024-12-11] MEDS: CLOPIDOGREL BISULFATE 75 MG TABLET PO (13:12)
== END 2024-12-11 13:20 | disposition home or self-care (01) ==
PROVIDERS: Emergency Provider Emergency Medicine; PCP Internal Medicine
DX: I63.9 Cerebral infarction, unspecified (principal); I10 Essential (primary) hypertension; E78.5 Hyperlipidemia, unspecified; F17.210 Nicotine dependence, cigarettes, uncomplicated
CPT/HCPCS: 36415; 80053; 85025; 85610; 85730; 93005; 99283; A9270

== ENCOUNTER 2025-01-27 12:46 | Outpatient (CLI) | payer MEDICARE, OTHER, SELFPAY ==
--- NOTE | 2025-01-27 13:00 | ECHO_ITS ---
Patient Info Name: Marisel Kwan Age: 69 years : 1955 Gender: Female Ht: 66 in Wt: 144 lbs BSA: 1.75 m2 HR: 67 bpm BP: 159 / 70 mmHg Technical Quality: Good Exam Date: 01/27/2025 12:54 PM Patient Status: O Admit Date: 01/27/2025 Exam Type: CA echo doppler color flow Complete two-dimensional, color flow and Doppler transthoracic echocardiogram is performed. Fixed Wing Aircraft Flight Engineer: Junie Diallo Attending Provider: Marvel Carbone MD Summary 1. Complete two-dimensional, color flow and Doppler transthoracic echocardiogram is performed. 2. Left ventricular chamber dimension is normal. 3. Left ventricular systolic function is normal, estimated at 60-65. 4. The left ventricular diastolic function is grade I diastolic dysfunction. 5. E/e' 13 is mildly elevated. 6. There is mild aortic valve sclerosis. 7. There is mild aortic valve regurgitation. 8. There is mild tricuspid valve regurgitation. 9. No pulmonary hypertension, estimated pulmonary arterial systolic pressure is 26 mmHg. Left Ventricle E/e' 13 is mildly elevated. Left ventricular chamber dimension is normal. Left ventricular systolic function is normal, estimated at 60-65. The left ventricular diastolic function is grade I diastolic dysfunction. Right Ventricle Right ventricular chamber dimension is normal. Right ventricular systolic function is normal and with normal TAPSE 2.3 cm. Left Atria Left atrial chamber dimension is normal. Right Atria Right atrial chamber dimension is normal. Aortic Valve The aortic valve is trileaflet. There is mild aortic valve sclerosis. There is no aortic valve stenosis. There is mild aortic valve regurgitation. Pulmonic Valve There is no pulmonic regurgitation. Mitral Valve There is no mitral valve stenosis. There is no mitral valve regurgitation. Tricuspid Valve There is mild tricuspid valve regurgitation. No pulmonary hypertension, estimated pulmonary arterial systolic pressure is 26 mmHg. Pericardium/Pleural There is no pericardial effusion. Inferior Vena Cava Normal inferior vena cava with >50% collapse upon inspiration consistent with normal right atrial pressure, 5 mmHg. Aorta The aortic root size at the sinus of Valsalva is normal. Left Ventricular Outflow Tract Name Value Normal LVOT 2D LVOT Diameter 1.9 cm LVOT Doppler LVOT Peak Velocity 97 cm/s LVOT Peak Gradient 4 mmHg LVOT Mean Gradient 2 mmHg LVOT VTI 19 cm LVOT VTI/AV VTI Ratio 0.6 LVOT Stroke Volume 56 ml LVOT CO 3.6 l/min LVOT CI 2.0 l/min/m2 Pulmonic Valve Name Value Normal PV Doppler PV Peak Velocity 106 cm/s PV Peak Gradient 4 mmHg Mitral Valve Name Value Normal MV Diastolic Function MV E Peak Velocity 65 cm/s MV A Peak Velocity 83 cm/s MV E/A 0.8 MV Decel Time (PW) 243 ms MV Annular TDI MV E/e' (Septal) 12.7 MV E/e' (Lateral) 14.4 MV E/e' (Average) 13.6 Tricuspid Valve Name Value Normal TV Regurgitation Doppler TR Peak Velocity 228 cm/s TR Peak Gradient 21 mmHg Estimated PAP/RSVP RA Pressure 5 mmHg <=5 PA Systolic Pressure 26 mmHg <36 RV Systolic Pressure 26 mmHg <36 TV Annular TDI TV Lateral Vangie s' Velocity 12.2 cm/s >=9.5 Aortic Valve Name Value Normal AV Doppler AV Peak Velocity 168 cm/s AV Peak Gradient 11 mmHg AV Mean Gradient 5 mmHg AV VTI 31 cm AV Area (Cont Eq VTI) 1.8 cm2 >=3.0 AV Area (Cont Eq Easton) 1.7 cm2 AV DI (Easton) 0.58 AV Regurgitation 2D LVOT Area 2.9 cm2 Ventricles Name Value Normal LV Dimensions 2D/MM IVS Diastolic Thickness (2D) 1.0 cm 0.6-1.0 LVID Diastole (2D) 4.1 cm 3.8-5.2 LVIW Diastolic Thickness (2D) 0.9 cm 0.6-0.9 LVID Systole (2D) 2.7 cm 2.2-3.5 LVOT Diameter 1.9 cm LV Mass (2D Cubed) 124.65 g 67.00-162.00 LV Mass Index (2D Cubed) 71 g/m2 43-95 Relative Wall Thickness (2D) 0.46 <=0.42 LV Fractional Shortening/Ejection Fraction 2D/MM LV Fractional Shortening (2D) 34 % 27-45 LV EF (2D Teichholz) 63 % LV Diastolic Volume (4C MOD) 74 ml LV EF (4C MOD) 65 % LV Diastolic Volume (2C MOD) 69 ml LV EF (2C MOD) 63 % LV Diastolic Volume (BP MOD) 73 ml 46-106 LV Diastolic Volume Index (BP MOD) 42 ml/m2 29-61 LV Systolic Volume (BP MOD) 26 ml 14-42 LV Systolic Volume Index (BP MOD) 15 ml/m2 8-24 LV EF (BP MOD) 64 % 54-74 LV Diastolic Length (4C) 7.4 cm LV Systolic Length (4C) 6.6 cm LV Stroke Volume (4C MOD) 48 ml Atria Name Value Normal LA Dimensions LA Volume (4C A-L) 45 ml LA Volume (BP A-L) 46 ml RA Dimensions RA Systolic Major [place] Length (4C) 4.8 cm 2.2-2.8 RA Area (4C) 13.0 cm2 <=18.0 Report Signatures
== END 2025-01-27 12:47 | disposition home or self-care (01) ==
PROVIDERS: PCP Internal Medicine; Visit Provider Internal Medicine
DX: I63.9 Cerebral infarction, unspecified (principal); I08.2 Rheumatic disorders of both aortic and tricuspid valves; I50.30 Unspecified diastolic (congestive) heart failure
CPT/HCPCS: 93306

== ENCOUNTER 2025-03-16 08:22 | Outpatient (CLI) | payer MEDICARE, OTHER, SELFPAY ==
--- OUTSIDE RECORDS SUMMARY | 2025-03-16 08:28 | XMS_ITS | Clinical Summary ---
Author Organization [facility] Address [address] [place] [address] Care Team Providers Care Digital Tech Name Role Phone Jose Sherman MD Primary Care Provider [phone] Encounters Date Type Department Care Team Description 01/06/2025 11:45 AM CDT Telephone [facility] [address] [place] [address] Jose Sherman MD Holter Monitor 01/02/2025 Telephone [facility] [address] [place] [address] Jose Sherman MD Orders from Last 3 Months Social History Tobacco Use Types Packs/Day Years Used Date Smoking Tobacco: Never Assessed Comments Unknown Sex and Gender Information Value Date Recorded Sex Assigned at Female 01/02/2025 7:28 AM CDT Legal Sex Female 7:26 AM CDT Gender Identity Not on file Sexual Orientation Not on file Plan of Treatment Health Maintenance Due Date Last Done Comments Colorectal Cancer Screening Colonoscopy (10 Years) 1955 Hepatitis C 1974 Mammogram Screening 1996 Annual Medicare Wellness Visit 2021 Dexa Scan (General) 2021 Pneumococcal Vaccine: 50+ Years (3 of 3 - PCV20 or PCV21) 01/10/2023 01/10/2018, 12/08/2016 COVID-19 Vaccine (2 - 2023-2 5 season) 2024 08/19/2021 RSV Immunization or 60+ Years (1 - 1-dose 75+ series) 2031 DTaP, Tdap and Td Vaccines ( 4 - Td or Tdap) 05/14/2034 05/14/2024, 10/16/2022, 01/27/2013 Zoster Vaccines Completed 10/03/2019, 03/20/2019, 12/08/2016 Meningococcal B Vaccine Aged Out No l onger eligible based on patient's age to complete this topic Meningococcal Vaccine Aged Out No javed hannah eligible based on patient's age to complete this topic RSV Immunizations Under 20 Months Aged Out No longer eligible b ased on patient's age to complete this topic Procedures Procedure Name Priority Date/Time Associated Diagnosis Comments EVENT RECORDER (ECG) UP TO 30 DAYS COMPLETE Routine 02/13/2025 1:43 PM CDT Cerebral infarction ([facility]) from Last 3 Months Results * CLINIC - OUTPATIENT EVENT RECORDER (ECG) UP TO 30 DAYS COMPLETE (Holter) (02/13/2025 1:43 PM CDT) Impressions [facility] - 02/13/2025 1:43 PM CDT [place], [place] [address] MOBILE CARDIAC FINISHED CLOTH EXAMINER REPORT Patient Name: Marisel Kwan : 1955 Source Inspector Date: 01/09/2025 End Date: 02/07/2025 Performed At: [place], [place] Interpreting Mechanic Insulator: Lonny Gamez MD PCP: JOSE SHERMAN MD Ordering Provider: Jose Sherman MD INDICATION: Stroke DURATION OF MONITORIN days NUMBER OF TRANSMISSIONS: 33 (27 auto transmissions, 6 manual, 0 periodic) INTERPRETATION: A 30-day mobile cardiac court monitor analyzed. Interpretable data was 28 days, 0 hours and 59 minutes (95% of monitoring period). The baseline rhythm was sinus rhythm. There was not atrial fibrillation or atrial flutter observed.. A minimum heart rate was 43 bpm on 01/21/2025 at 5:55 AM. A maximum heart rate in sinus rhythm was 113 bpm on 01/26/2025 at 8:14 AM. There were 0 pauses observed. The manual triggered episodes no reported symptoms and correlated with sinus rhythm. The auto triggered episodes were for sinus bradycardia, supraventricular bigeminy, premature ventricular complexes, ventricular bigeminy, brief nonsustained supraventricular runs, sinus tachycardia. There was an 8 beat run of nonsustained ventricular tachycardia. The overall ventricular ectopy burden was low less than 1%. CONCLUSION: 30-day mobile cardiac telemetry was without atrial fibrillation or flutter observed. There was an observation of nonsustained ventricular tachycardia. Interpreting Mechanic Insulator: Dr. Lonny Gamez us Jose Sherman MD CV VASCULAR ORDERABLES Final Result [facility] from Last 3 Months Insurance MEDICARE Care Teams Digital Tech Relationship Specialty Start Date End Date Jose Sherman MD [address] [place] [id number] PCP - General INTERNAL MEDICINE 01/02/25
--- NOTE | 2025-03-16 08:35 | EST_ITS ---
Patient Info Name: Marisel Kwan Age: 69 years : 1955 Gender: Female Ht: 66 in Wt: 145 lbs BSA: 1.76 m2 HR: 68 bpm BP: 137 / 75 mmHg Heart Rhythm: Sinus Rhythm Technical Quality: Good Exam Date: 03/16/2025 8:35 AM Patient Status: O Admit Date: 03/16/2025 Exam Type: CA stress test treadmill w NM A treadmill exercise stress test was performed. Staff Referring Physician: Marvel Carbone MD Attending Provider: Marvel Carbone MD Summary 1. 1. Negative Porfirio exercise stress test for ischemic ST changes by ECG criteria. 2. 2. Reduced functional capacity, achieving 8.5 METs of workload. 3. 3. Appropriate HR response to exercise. 4. 4. Appropriate HR recovery at 1 minute post exercise. 5. 5. Nuclear scan to follow and will be reported separately. Please correlate with it. History/Risk Factors Hypertension: Yes Dyslipidemia: Yes Tobacco Use: Current - Every Day If Any Current, Tobacco Type: Cigarettes Protocol: Manual Mode Stress ECG Details Stage: REST Duration (min): 1 min : 54 sec : --- Speed (mph): 0.0 Grade (%): 0 HR (bpm): 67 SBP (mmHg): 137 DBP (mmHg): 75 METS: --- Stage: REST Duration (min): 26 min : 30 sec : --- Speed (mph): 0.0 Grade (%): 0 HR (bpm): 71 SBP (mmHg): 137 DBP (mmHg): 75 METS: --- Stage: STAGE 1 Duration (min): 1 min : 0 sec : --- Speed (mph): 1.7 Grade (%): 10 HR (bpm): 84 SBP (mmHg): 137 DBP (mmHg): 75 METS: --- Stage: STAGE 1 Duration (min): 2 min : 0 sec : --- Speed (mph): 1.7 Grade (%): 10 HR (bpm): 89 SBP (mmHg): 137 DBP (mmHg): 75 METS: --- Stage: STAGE 1 Duration (min): 3 min : 0 sec : --- Speed (mph): 1.7 Grade (%): 10 HR (bpm): 95 SBP (mmHg): 162 DBP (mmHg): 58 METS: --- Stage: STAGE 2 Duration (min): 1 min : 0 sec : --- Speed (mph): 2.5 Grade (%): 12 HR (bpm): 101 SBP (mmHg): 162 DBP (mmHg): 58 METS: --- Stage: STAGE 2 Duration (min): 2 min : 0 sec : --- Speed (mph): 2.5 Grade (%): 12 HR (bpm): 123 SBP (mmHg): 162 DBP (mmHg): 58 METS: --- Stage: STAGE 2 Duration (min): 3 min : 0 sec : --- Speed (mph): 2.5 Grade (%): 12 HR (bpm): 118 SBP (mmHg): 190 DBP (mmHg): 69 METS: --- Stage: STAGE 3 Duration (min): 1 min : 0 sec : --- Speed (mph): 2.8 Grade (%): 14 HR (bpm): --- SBP (mmHg): 190 DBP (mmHg): 69 METS: --- Stage: STAGE 3 Duration (min): 1 min : 30 sec : --- Speed (mph): 2.8 Grade (%): 14 HR (bpm): --- SBP (mmHg): 190 DBP (mmHg): 69 METS: --- Stage: RECOVERY Duration (min): 0 min : 29 sec : --- Speed (mph): 0.0 Grade (%): 0 HR (bpm): --- SBP (mmHg): 190 DBP (mmHg): 69 METS: --- Stage: RECOVERY Duration (min): 1 min : 29 sec : --- Speed (mph): 0.0 Grade (%): 0 HR (bpm): --- SBP (mmHg): 190 DBP (mmHg): 69 METS: --- Stage: RECOVERY Duration (min): 2 min : 29 sec : --- Speed (mph): 0.0 Grade (%): 0 HR (bpm): 85 SBP (mmHg): 183 DBP (mmHg): 66 METS: --- Stage: RECOVERY Duration (min): 3 min : 29 sec : --- Speed (mph): 0.0 Grade (%): 0 HR (bpm): 85 SBP (mmHg): 183 DBP (mmHg): 66 METS: --- Stage: RECOVERY Duration (min): 4 min : 29 sec : --- Speed (mph): 0.0 Grade (%): 0 HR (bpm): 80 SBP (mmHg): 165 DBP (mmHg): 75 METS: --- Stage: RECOVERY Duration (min): 5 min : 29 sec : --- Speed (mph): 0.0 Grade (%): 0 HR (bpm): 82 SBP (mmHg): 165 DBP (mmHg): 75 METS: --- Stage: RECOVERY Duration (min): 6 min : 29 sec : --- Speed (mph): 0.0 Grade (%): 0 HR (bpm): 82 SBP (mmHg): 158 DBP (mmHg): 72 METS: --- Stage: RECOVERY Duration (min): 7 min : 14 sec : --- Speed (mph): 0.0 Grade (%): 0 HR (bpm): 76 SBP (mmHg): 158 DBP (mmHg): 72 METS: --- Rest HR: 71 bpm Peak HR: 139 bpm Rest Sys BP: 137 mmHg Peak Sys BP: 190 mmHg Max Pred HR: 152 bpm % Max Pred HR: 91 % Target HR: 129 bpm Max RPP: 26,410 bpm*mmHg BP Response: Normal blood pressure response Termination Reason: faster walking Cardiac Symptoms: None Total Time: 7 min : 30 sec Rest Cunningham BP: 75 mmHg Peak Cunningham BP: 69 mmHg Resting ECG Normal sinus rhythm - normal ECG. Stress ECG No abnormal ST/T wave changes with exercise. Arrhythmias Frequent PVCs including some couplets and a triplet (run) as well as bigeminy. Report Signatures
--- NOTE | 2025-03-16 12:56 | P.NST_ITS ---
Nuclear Stress Test INDICATIONS Indications: NSVT PROCEDURE Procedure Performed: Myocardial Perf Spect-Multi Procedure: Patient exercised on a standard Porfirio protocol and at peak exercise was injected with 32.6 mCi of cardiolyte. Multiple tomographic images were obtained. These are of good quality. There is a small size, moderate apical perfusion defect with stress imaging. A separate resting images were obtained after patient was injected with 10.7 mCi of cardiolyte. Multiple tomographic images were obtained. These are of good quality. There is a small size, moderate apical perfusion defect with restimagi ng. CONCLUSION Conclusion: 1. Myocardial perfusion imaging demonstrating a fixed apical defect suggestive of attenuation artifact. 2. No evidence of reversible ischemia. 3. Left ventriculogram demonstrates normal measured ejection fraction of 66% with no wall motion abnormalities. 4. TID score 0.96 is not elevated.
== END 2025-03-16 08:23 | disposition home or self-care (01) ==
LOC: CHSCARD 08:24
PROVIDERS: PCP Internal Medicine; Visit Provider Internal Medicine
DX: I47.29 Other ventricular tachycardia (principal)
CPT/HCPCS: 78452; 93017; A9502

== ENCOUNTER 2025-07-07 07:55 | Outpatient (CLI) | payer MEDICARE, OTHER, SELFPAY ==
--- NOTE | ~2025-07-07 | CT_ITS ---
EXAMINATION:CT lung screening DATE: 07/07/2025 08:35 INDICATION: Personal history of nicotine dependence. TECHNIQUE: Computed tomography (CT) of the chest was performed without intravenous contrast. Automated exposure control and iterative reconstruction technique were employed. The dose-length product (DLP) was 68.93 mGy-cm. COMPARISON: Chest CT 06/11/2024 FINDINGS: There is mild emphysema. There is a 2 mm nodule in right upper lobe. A calcified left lung nodule is consistent with old granulomatous disease. There is mild scarring in paraspinal right lower lobe. No pleural effusion. The heart size is normal. There are coronary artery calcifications. No pericardial effusion. There is a 9 mm cyst in the liver. There are old healed bilateral rib fractures. There is severe cervical and thoracic spondylosis. There are chronic compression fractures of multiple thoracic vertebral bodies. IMPRESSION: 1. Lung-RADS category 2: Benign appearance or behavior. Continue annual screening with noncontrast low-dose chest CT in 12 months. Reviewed, dictated and finalized at location E. ECTOR WREATH IMPRESSION: 1. Lung-RADS category 2: Benign appearance or behavior. Continue annual screeni ng with noncontrast low-dose chest CT in 12 months.
--- NOTE | ~2025-07-07 | MM_ITS ---
EXAMINATION: MM screening isa BI w nuvia HISTORY: Screening. TECHNIQUE: Craniocaudal and mediolateral oblique 3-D tomosynthesis images were obtained and synthetic 2-D images were generated. CAD analysis was submitted and interpreted. COMPARISON: 2023, 2022, and 2020. BREAST PARENCHYMAL COMPOSITION: Scattered FINDINGS: No suspicious masses are seen. There is a group of calcifications in the posterolateral left breast, which appear relatively punctate on these nonmagnified images. No unexplained architectural distortion is seen. There are no skin or nipple abnormalities identified. There is no adenopathy seen on the images submitted. IMPRESSION: Calcifications on the left for which additional imaging is recommended. BI-RADS 0 - Incomplete - needs additional imaging evaluation and/or prior mammograms for comparison. Reviewed, dictated and finalized at location B. INE OPERATOR ASSISTANT IMPRESSION: Calcifications on the left for which additional imaging is recommended. BI-RADS 0 - Incomplete - needs additional imaging evaluation and/or prior mammo grams for comparison.
--- OUTSIDE RECORDS SUMMARY | 2025-07-07 08:02 | XMS_ITS | Clinical Summary ---
Author Organization [facility] Address [facility] [place] [address] Care Team Providers Care Foundation Engineer Name Role Phone Marvel Carbone MD Primary Care Provider [phone] Social History Tobacco Use Types Packs/Day Years [...] 01/10/2023 01/10/2018, 12/08/2016 COVID-19 Vaccine (2 - 2024-2 6 season) 2025 08/19/2021 Influenza Adult (#1) 2025 05/14/2024, 04/05/2022, 06/17/2018 RSV Immunization or 60+ Years (1 - 1-dose 75+ series) 2031 DTaP, Tdap and Td Vaccines ( 4 - Td or Tdap) 05/14/2034 05/14/2024, 10/16/2022, 01/27/2013 Zoster Vaccines Completed 10/03/2019, 03/20/2019, 12/08/2016 Hepatitis A Vaccines Aged Out No long er eligible based on patient's age to complete this topic Meningococcal B Vaccine Aged Out No l onger eligible based on patient's age to complete this topic Meningococcal Vaccine Aged Out No javed hannah eligible based on patient's age to complete this topic RSV Immunizations Under 20 Months Aged Out No longer eligible b ased on patient's age to complete this topic Insurance MEDICARE Care Teams Foundation Engineer Relationship Specialty Start Date End Date Marvel Carbone MD [address] [place] [address] PCP - General INTERNAL MEDICINE 01/02/25
== END 2025-07-07 07:56 | disposition home or self-care (01) ==
LOC: CHSIMG 07:58
PROVIDERS: PCP Internal Medicine; Visit Provider Internal Medicine
DX: Z12.31 Encounter for screening mammogram for malignant neoplasm of breast (principal); Z12.2 Encounter for screening for malignant neoplasm of respiratory organs; Z87.891 Personal history of nicotine dependence; R92.8 Other abnormal and inconclusive findings on diagnostic imaging of breast
CPT/HCPCS: 71271; 77063; 77067

== ENCOUNTER 2025-08-04 08:51 | Outpatient (CLI) | payer MEDICARE, OTHER, SELFPAY ==
[2025-08-04 08:59] VITALS: BP 145/60; PULSE 85; RESP 18; TEMP 36.4; O2SAT 98
[2025-08-04 09:01] VITALS: BMI 23.5
--- OUTSIDE RECORDS SUMMARY | 2025-08-04 09:05 | XMS_ITS | Clinical Summary ---
Author Organization [facility] Address [facility] of [facility] [place] [address] Care Team Providers Care Veteran Appeals Reviewer Name Role Phone Marvel Carbone MD Primary Care Provider [phone] Social History Tobacco Use Types Packs/Day Years [...] complete this topic Insurance MEDICARE Care Teams Veteran Appeals Reviewer Relationship Specialty Start Date End Date Marvel Carbone MD [address] [place] [address] PCP - General INTERNAL MEDICINE 01/02/25
[2025-08-04] MEDS: ZOLEDRONIC ACID 5 MG/100 ML 100 ML 400 MG IVPB (09:24)
== END 2025-08-04 09:42 | disposition home or self-care (01) ==
PROVIDERS: PCP Internal Medicine; Visit Provider Internal Medicine
DX: M81.0 Age-related osteoporosis without current pathological fracture (principal)
CPT/HCPCS: 96374; J3489